=== PATIENT | female | born 1950 | race Caucasian/White ===

== ENCOUNTER 2021-08-31 07:04 | Outpatient (CLI) | payer MEDICARE, BC, SELFPAY | END 2021-08-31 07:05 | disposition home or self-care (01) | PROVIDERS: PCP Family Medicine; Visit Provider Family Medicine | DX: M54.16 Radiculopathy, lumbar region (principal); M51.36 Other intervertebral disc degeneration, lumbar region | CPT/HCPCS: 64483; J1100; Q9966 ==

== ENCOUNTER 2022-03-14 07:19 | Outpatient (CLI) | payer MEDICARE, BC, SELFPAY ==
--- NOTE | 2022-03-14 09:07 | W.ANESCHARGE ---
Anesthesia Charges Start Date/Time Anesthesia Start Date: 03/14/22 Anesthesia Start Time: 08:15 Stop Date/Time Anesthesia Stop Date: 03/14/22 Anesthesia Stop Time: 09:00 Summary Emergency: No Extremes of Age: Over 70-CPT 29573
--- NOTE | 2022-03-14 09:14 | W.ANESCHARGE ---
Anesthesia Charges Start Date/Time Anesthesia Start Date: 03/14/22 Anesthesia Start Time: 08:15 Stop Date/Time Anesthesia Stop Date: 03/14/22 Anesthesia Stop Time: 09:00 Summary Emergency: No Extremes of Age: Over 70-CPT 31099
--- NOTE | 2022-03-14 09:21 | W.ANESCHARGE ---
Anesthesia Charges Start Date/Time Anesthesia Start Date: 03/14/22 Anesthesia Start Time: 08:15 Stop Date/Time Anesthesia Stop Date: 03/14/22 Anesthesia Stop Time: 09:00 Summary Emergency: No Extremes of Age: Over 68-CPT 88758
== END 2022-03-14 07:20 | disposition home or self-care (01) ==
LOC: OP CLINIC 07:21
PROVIDERS: PCP Family Medicine; Visit Provider Internal Medicine Gastroenterology
DX: D50.9 Iron deficiency anemia, unspecified (principal); K57.30 Diverticulosis of large intestine without perforation or abscess without bleeding; Z86.010 Personal history of colon polyps; K22.89 Other specified disease of esophagus; K44.9 Diaphragmatic hernia without obstruction or gangrene; K31.7 Polyp of stomach and duodenum; R19.7 Diarrhea, unspecified
CPT/HCPCS: 00811; 00813; 43239; 45380; 88305; 99100; J2704; J3490

== ENCOUNTER 2024-07-02 22:12 | Emergency (ER) | payer MEDICARE, BC, SELFPAY ==
--- OUTSIDE RECORDS SUMMARY | 2024-07-02 22:14 | XMS_ITS | Clinical Summary ---
Author Organization [facility] Address [address] [place] [address] Care Team Providers Care Audiovisual Aids Technician Name Role Phone Hillary Webb MD Primary Care Provider Allergies No known active allergies Medications calcium carbonate (CALTRATE) 600 mg calcium (1,500 mg) tabletIndications :Osteopenia, unspecified location Take 1 Tablet (600 mg) by mouth two times daily with meals. 180 Tablet 3 11/05/19 22 Active fluticasone (50 mcg per actuation) nasal solution (FLONASE) Inhale 1 [place] into affected nostril(s) once daily if needed for Rhinitis. Active loperamide (IMODIUM) 2 mg capsule Take 2 mg by mouth each time if needed for Diarrhea. Take 2 capsules (4mg) orally with 1st loose stool, then 1 capsule (2mg) with other loose stools. Max 16 mg in 24 hrs. Active acetaminophen (TYLENOL EXTRA STRGTH) 500 mg tablet Take 2 Tablets (1,000 mg) by mouth every 6 hours if needed for Pain (For mild pain 1st choice. May take either Tylenol tablet or liquid, if both ordered.). Max acetaminophen dose: 4000mg in 24 hrs. 0 05/14/19 23 Active alendronate (FOSAMAX) 70 mg tabletIndications :Osteopenia, unspecified location TAKE 1 TABLET ONCE WEEKLY IN THE MORNING . TAKE ON EMPTY STOMACH WITH FULL GLASS OF WATER. DO NOT LIE DOWN OR EAT FOR AT LEAST 30 MINUTES AFTER ADMINISTRATION. 13 Tablet 3 11/23/19 24 Active allopurinoL (ZYLOPRIM) 100 mg tabletIndications :Gout, unspecified cause, unspecified chronicity, unspecified site,Hyperuricemi a Take 1 Tablet (100 mg) by mouth once daily. 90 Tablet 3 11/23/19 24 Active atorvastatin (LIPITOR) 20 mg tabletIndications :Hyperlipidemia, unspecified hyperlipidemia type Take 1 Tablet (20 mg) by mouth at bedtime. 100 Tablet 3 11/23/19 24 Active atenoloL (TENORMIN) 25 mg tabletIndications :Essential hypertension Take 1 Tablet (25 mg) by mouth once daily. 100 Tablet 3 11/23/19 24 Active clobetasol (TEMOVATE) 0.05 % ointmentIndicatio ns:Lichen sclerosus Apply thin later to genital area involved at bedtime once weekly 45 g 1 11/23/19 24 Active cholecalciferol, Vitamin D3, (Vitamin D-3) 5,000 unit tab tabletIndications :Hypovitaminosis D Take 1 Tablet (5,000 units) by mouth once daily. 90 Tablet 3 11/24/19 24 Active amoxicillin-clavu lanate 875-125 mg tabletIndications :Sinusitis, unspecified chronicity, unspecified location Take 1 Tablet by mouth two times daily with meals. 10 Tablet 06/21/19 25 Active amitriptyline (ELAVIL) 10 mg tabletIndications :Irritable bowel syndrome with diarrhea TAKE 1 TABLET AT BEDTIME 90 Tablet 1 12/08/19 24 025 Discontin ued(*Med complete/ Regimen complete/ Level of care change) amoxicillin-clavu lanate 875-125 mg tabletIndications :Sinusitis, unspecified chronicity, unspecified location Take 1 Tablet by mouth two times daily with meals for 5 days. 10 Tablet 06/21/19 25 025 Discontin ued(Reord er (E-cancel not sent)) Active Problems Problem Noted Date Diagnosed Date Iron deficiency anemia due to chronic blood loss 01/06/2022 Overview (03/16/2022): 10/2021 Hgb 10.6 no symptoms IV iron given 07/2017: HGB 7.0 Tranfused due to SOB EGD: 7cm hiatal hernia Final Diagnosis A) DUODENUM, BIOPSY: 1. Normal small bowel mucosa 2. Negative for celiac disease and other enteropathy B) STOMACH, BIOPSY: 1. Non-erosive reactive gastropathy (see comment) 2. Negative for chronic and atrophic gastritis, and Helicobacter organisms C) ESOPHAGUS, BIOPSY: 1. Normal esophageal squamous mucosa 2. Negative for reflux changes and eosinophilic esophagitis 3. Negative for columnar mucosa Primary osteoarthritis of right knee 06/12/2021 Overview (07/05/2021): May 2021: Dr. Stone did right knee cortisone injection. Initially 100% relief, at 3 to 4 weeks was down to 75% pain relief. Lichen sclerosus 07/18/2018 Gout 08/27/2017 Overview (08/27/2017): ON allopurinol, has hx gi bleed, use colchicine for flares Skin cancer 11/01/2016 Overview (12/22/2016): 10/29/16 RIGHT SHOULDER: BCC, nodular/infiltrative types--treated ED&C 11/17/16 DEDE Lopez Osteopenia 03/20/2014 Overview (11/04/2021): DEXA 2020 - started alendronate started Colon polyp Overview (03/16/2022): Colonoscopy 03/14/22 Normal - no follow up advised Colonoscopy 02/2017 diverticulosis , repeat in 5 years Impressions/Post-Op Diagnosis: - Diverticulosis in the sigmoid colon, in the descending colon, in the transverse colon and in the ascending colon. - The examination was otherwise normal on direct and retroflexion views. - No specimens collected. Colonoscopy 2011 in [place] - tubular adenoma x2 Hiatal hernia Overview (03/16/2022): EGD 2006 in [place] - hiatal hernia EGD 08/28/2017 Done after drop in hemoglobin form 10.6 to 7.0 in 3 months.(tranfused due to SOB) Hiatal hernia 7cm Path: Final Diagnosis A) DUODENUM, BIOPSY: 1. Normal small bowel mucosa 2. Negative for celiac disease and other enteropathy B) STOMACH, BIOPSY: 1. Non-erosive reactive gastropathy (see comment) 2. Negative for chronic and atrophic gastritis, and Helicobacter organisms C) ESOPHAGUS, BIOPSY: 1. Normal esophageal squamous mucosa 2. Negative for reflux changes and eosinophilic esophagitis 3. Negative for columnar mucosa EGD 03/14/2022: (on PPI for 4 months) Done for eval of recurrent anemia with hgb 10.6 10/2021 found incidentally Final Diagnosis A) DUODENUM, BIOPSY: 1. Normal duodenal mucosa 2. Negative for celiac disease and other enteropathy B) STOMACH, ANTRUM AND BODY, BIOPSY: 1. Normal gastric antral and body mucosae 2. Negative for Helicobacter C) STOMACH, FUNDUS, POLYPS, BIOPSY: 1. Fundic gland polyps 2. Negative for dysplasia and malignancy D) ESOPHAGUS, LOWER THIRD, BIOPSY: 1. Normal esophageal squamous mucosa 2. Negative for reflux changes and eosinophilic esophagitis 3. Negative for columnar mucosa E) COLON, RANDOM, BIOPSY: 1. Normal colonic mucosa 2. Negative for microscopic, active, and chronic colitis Gastroesophageal reflux Hyperlipidemia Hypertension Resolved Problems Problem Noted Date Diagnosed Date Resolved Date Melanoma in situ, lentigo maligna type of lip 04/23/19 20 10/28/2020 Encounters Date Type Department Care Team Description 06/20/2024 [facility]phone [facility] [address] [place] [address] Hillary Webb MD Questions (Where was her prescription sent) 06/05/2024 12:40 PM CDT [facility] [address] [place] [address] Hillary Webb MD Preoperative Exam (CATARACT (BOTH EYES BUT DIFFERENT DAYS FOR SURGERY) LEFT EYE 06/26/24, RIGHT EYE 07/03/24, [facility] EYE [facility], LORAINE VALENZUELA, ) 06/04/2024 Travel from Last 3 Months Immunizations Immunization Administration Dates Next Due COVID-19 vaccine ([employer] NTShoot Extreme 30mcg/0.3mL) MAXIM NARAYANAN 05/06/2020,04/15/2020 Influenza, High-dose Inactivated 01/25/2016,11/21 Influenza, High-dose Quadriv alent Inactivated 11/22/2022,12/06/2021,11/26/2020 Influenza, IIV3 (Age >=3 years) 01/15/20 13,01/21/2012,01/23/2009,12/21,02/01/2005 Influenza, Inactivated IIV3 (Age 65+ Years) Preserv Free 12/12/2018,12/18/2017,12/28/2016 Pneumococcal Poly,23-Valent (Pneumovax) 03/18/2013 Pneumococcal conj 13-Valent (Prevnar 13) 03/20/2014 RSV, Recombinant ADJ Reconst ituted (Arexvy 120MCG/0.5mL) 03/31/2023 Td (Age >=7 Years) 03/23/1999 Tdap 01/31/2020,03/06/2009 Zoster (Shingrix-RZV, recombinant) 03/08/2018, Family History Medical History Relation Name Comments Hypertension Mother Osteoporosis Mother Cancer-breast No Family History Cancer-ovarian No Family History Relation Name Status Comments Mother Social History Tobacco Use Types Packs/Day Years Used Date Smoking Tobacco: Former Cigarettes 0.5 10.3 0 10/21/1965 - 05/21/1976 Smokeless Tobacco: Never Tobacco Cessation:Counseling Given: Not Answered Comments:Stopped smoking 40 years ago Alcohol Use Standard Drinks/Week Comments Yes 0 (1 standard drink = 0.6 oz pur e alcohol) minimal PHQ-2 Answer Date Recorded PHQ-2 TOTAL SCORE 0 11/23/2023 Social Connections Answer Date Recorded Do you often feel lonely or isolated from those around you? 0 11/22/2023 Financial Resource Strain Answer Date R ecorded Difficulty of Paying Living Expenses 3 11/22/2023 Difficulty of Paying Living Expenses Not on file 11/22/2023 Food Insecurity Answer Date Recorded Do you worry your food will run out before you are able to buy more? 1 11/22/2023 Transportation Needs Answer Date Record ed Does lack of transportation keep you from medica l appointments? 1 11/22/2023 Does lack of transportation keep you from work, meetings or getting things that you need? 1 11/22/2023 Housing Stability Answer Date Recorded What is your housing situation today? 1 11/22/2023 Utilities Answer Date Recorded Do you have trouble paying f or utilities (for example, heat, electricity, water, phone)? 1 11/22/2023 Comments No Sex and Gender Information Value Date Recorded Sex Assigned at Not on file Legal Sex Female 2:53 PM BIODIESEL PLANT MANAGER Gender Identity Not on file Sexual Orientation Not on file Obstetrics History Para Term AB IAB SAB Ectopic Multiple Livin g Live Births 2 2 2 Date Outcome GA Total Labor Labor/2nd/3rd Weight Sex Type Anes PTL Yuko A1 A5 Name Clin Para Para Last Filed Vital Signs Vital Sign Reading Time Taken Comments Blood Pressure 146/82 06/05/2024 12:45 PM CDT Pulse 51 06/05/2024 12:45 PM CDT Temperature 36.7 C (98.1 F) 09/13/2022 2:45 PM CDT Respiratory Rate 12 09/13/2022 2:45 PM CDT Oxygen Saturation 100% 06/05/2024 12:45 PM CDT Inhaled Oxygen Concentration - - Weight 59.6 kg (131 lb 6.4 oz) 06/05/2024 12:45 PM CDT Height 164.5 cm (5' 4.76) 06/05/2024 12:45 PM C DT Body Mass Index 22.03 06/05/2024 12:45 PM CDT Plan of Treatment Health Maintenance Due Date Last Done Comments COVID-19 vaccine series ( season) 2024 12/05/2023, 08/17/2023, 11/22/2022, Additional history exists Influenza Vaccine (Season Ended) 2024 12/12/2018, 12/18/2017, 12/28/2016, Additional history exists Depression screening for age 12+ 11/22/2024 11/23/2023, 11/07/2022, 11/04/2021, Additional history exists Medicare Wellness for age 65+ 11/23/2024, 11/07/2022, 11/04/2021 (Verified in Care Everywhere or Patient Record), Additional history exists BMI (ht and wt on same day) for age 18+ 06/05/2025 06/05/2024, 11/23/2023, 11/07/2022, Additional history exists Tetanus booster 01/30/2030 01/31/2020, 02/20, 03/23/1999 Pneumococcal series for age 50+ Completed , 03/18/2013 Zoster (shingles) series for age 50+ Completed 03/08/2018, 11/16/2017 Tdap Completed 01/31/2020, 03/06/2009 Hepatitis C screening for ag e 18-79 Completed 10/28/2020 DEXA/DXA scan for age 65+ Completed 2023, 11/03/2020, 03/20/2014, Additional history exists RSV vaccine for adults or Completed 03/31/2023 Procedures Procedure Name Priority Date/Time Associated Diagnosis Comments XR DXA BONE DENSITY 1 SITE AXIAL AND 1 SITE PERIPHERAL Routine 03/27/2023 1:48 PM BIODIESEL PLANT MANAGER Osteopenia, unspecified location Postmenopausal ANTI HCV Routine 10/28/2020 9:10 AM CDT Need for hepatitis C screening test from Last 3 Months or Most Recently Relevant to Health Maintenance Results * (ABNORMAL) XR DXA BONE DENSITY 1 SITE AXIAL AND 1 SITE PERIPHERAL (03/27/2023 1:48 PM BIODIESEL PLANT MANAGER) Anatomical Region Laterality Modality LUMBAR SPINE Other Impressions 03/28/2023 2:10 PM BIODIESEL PLANT MANAGER Osteoporosis. There has been a significant decline in the radius since 2020, consider alternative treatment. RECOMMENDATIONS: The National Osteoporosis Foundation recommends pharmacologic treatment for patients with T-scores of -2.5 or less, patients with prior history of fragility fractures, or patients with 10-year probability of greater than 3% at hips or greater than 20% of suffering major osteoporotic fractures. Recommend continued optimization of calcium and vitamin D intake through dietary means and/or supplementation and regular exercise. Consider alternative medication due to decline, recheck in 2 years. Zita Butler PA-C [employer] [facility] 03/28/2023 Narrative 03/28/2023 2:10 PM BIODIESEL PLANT MANAGER For Patients: Results are automatically released to your [employer] account once available, in compliance with federal regulations. This means that you may see your results before your provider has had a chance to review them. Please allow 2-3 business days for your provider to comment on the results. XR DXA Bone Mineral Density (BMD) EXAM LOCATION: [facility] [address] [facility] [address] PATIENT NAME: Meg Doty DATE OF : 1950 EXAM DATE: 03/27/2023 REQUESTING PROVIDER: Hillary Webb MD GENDER AT : female HEIGHT: 5' 4.33 (11/07/2022) WEIGHT: 123 lb 9.6 oz (11/07/2022) MENOPAUSAL STATUS: Postmenopausal RACE/ETHNICITY: White RISK FACTORS: Smoking (prior) and White Race CURRENT MEDICATION FOR BONE LOSS: Alendronate (Fosamax) INDICATION: Follow-up of existing osteopenia, Follow-up of pharmacologic treatment, and Post-Menopause COMPARISON DATE(S): 2020 DXA scans are compared to prior studies for a patient only when the two (or more) studies were performed on the same scanner. It is not possible to compare data generated on one scanner to data from another because there are not standards in DXA equipment. This applies even if the two scanners are made by the same tray packer. PROCEDURE: Dual-energy x-ray absorptiometry performed with routine technique. Reporting is completed in the form of a T-score. The T-score represents the standard deviation from peak bone mass based on young healthy adult. A Z-score is used for diagnosis in premenopausal women, and for men under the age of 50. FINDINGS: RESULTS FEMUR Left femoral neck BMD: 0.920 g/cm2 T-Score: - 0.9 Z-Score: + 1.3 Change from prior in 2020: Increase 4.3%. Right femoral neck BMD: 0.778 g/cm2 T-Score: - 1.9 Z-Score: + 0.3 Change from prior in 2020: Increase 5.6%. Left hip BMD: 0.889 g/cm2 T-Score: - 0.9 Z-Score: + 1.0 Change from prior in 2020: Increase 2.3%. Right hip BMD: 0.787 g/cm2 T-Score: - 1.8 Z-Score: + 0.2 Change from prior in 2020: Increase 1.7%. RESULT FOREARM Left Forearm distal radius BMD: 0.490 g/cm2 T-Score: - 3.0 Z-Score: - 0.8 Change from prior in 2020: Decrease 9.3%. WHO criteria: Normal: T-score at or above -1 SD Osteopenia: T-score between -1.1 and -2.4 SD Osteoporosis: T-score at or below -2.5 SD us Hillary Webb MD DEXA Final Resul t * ANTI HCV (10/28/2020 9:10 AM CDT) HEPATITIS C ANTIBODY Non-React yvon Non-React yvon 10/28/2020 4:52 PM CDT [facility] Comment:Antibodies to HCV no t detected; does not exclude the possibility of exposure to HCV. Blood BLOOD SPECIMEN / Unknown Venipuncture / Unknown 10/28/2020 9:10 AM CDT 10/28/2020 9:10 AM CDT us Gaby Brar MD SEND OUTS Final Result [facility] [address] [place] [address], [place] from Last 3 Months or Most Recently Relevant to Health Maintenance Insurance [employer] [address] [employer] HB ONLY MEDICARE PART B HB ONLY MEDICARE PART A HB ONLY Advance Directives Documents on File Type Date Recorded Patient Workforce Planner Expl anation Healthcare Directive 05/03/2016 017 * Full Code (Latest Code Status on File) Date Activated Date Inactivated Comments 05/13/2022 8:36 AM 05/13/2022 1:30 PM Question Answer Comments Code Status Discussion: Reviewed Preferences * Full Code Date Activated Date Inactivated Comments 05/12/2022 10:57 AM 05/13/2022 8:36 AM Question Answer Comments Code Status Discussion: Unable to Assess Preferences, Provider to review later * Full Code Date Activated Date Inactivated Comments 04/23/2019 6:08 AM 04/23/2019 1:43 PM * Full Code Date Activated Date Inactivated Comments 04/23/2019 6:08 AM 04/23/2019 6:08 AM Care Teams Audiovisual Aids Technician Relationship Specialty Start Date End Date Hillary Webb MD [address] [place] [address] PCP - General Family Practice 08/24/22
--- OUTSIDE RECORDS SUMMARY | 2024-07-02 22:14 | XMS_ITS ---
Author Name Interface, [id number] [facility]ity Address [address] [facility] [address] [address] Organization [facility] Address [address] [facility] [address] [place] [address] Care Team Providers Care Paraffin Plant Sweater Operator Name Role Phone Richard Jordan Unavailable Unavailab le Allergies and Adverse Reactions Medication/Group Name Reaction Severity Date No known allergies Plan Date Type Value 11/02/2020 APPOINTMENT RC - 3 MOS - 3 M OS 08/06/2020 APPOINTMENT RC - 3 MOS - 3 M OS Reason for Visit RC - 3 MOS - 3 MOS Encounters Date Name 08/06/2020 Hypertrophic scar 08/06/2020 Melanoma in situ Immunizations Date Name Route Dose Instructions Refusal Reason Stat us Covid-19 vaccine (Moderna) Covid-19 vaccine (Moderna) Diagnostic Results Date Type Test Units Lower Limit Upper Limit Result Flag Comments Status Ordered By Specimen Source Lab Address 10/28 [facility] other lab See d Medications Date Name Route Dose Frequency Instructions Start Date End Date Status Simvastatin Oral active Allopurinol Oral active Loperamide Oral a ctive Clobetasol Topical Cream 0.05 % active Fluticasone Nasal [place] 50 mcg/actuation active Atenolol Oral act yvon Omeprazole Oral Delayed Release Capsule active 021 triamcinolone acetonide 40 MG/ML Injectable Suspension [Kenalog] into the lesion 0.4 mg once inject into site as ten - 1 mg doses greater than or equal to 1 cm apart. 021 active 015 Cholecalciferol Oral Oral 1.0 {capsul e} Vitamin D3 015 active Problems Diagnosis Status Date of Diagnosi s Hypertrophic scar Active Melanoma in situ Active 03/05/2019 Vital Signs Date Type Value 08/06/2020 Heart Beat 70.00 08/06/2020 Oxygen Saturation 98.00 08/06/2020 Height 65.00 08/06/2020 Pain Scale 0.00 08/06/2020 Intravascular Systolic 108 08/06/2020 Intravascular Diastolic 65
--- OUTSIDE RECORDS SUMMARY | 2024-07-02 22:14 | XMS_ITS | CCD ---
Author Name Interface, [id number] lity Address [address] [place], [place] [address] [place] [address] Organization [facility] Address [address] [address] Care Team Providers Care Applications Scientist Name Role Phone Richard Jordan Unavailable Unavailab le Allergies and Adverse Reactions Reason for Visit Encounters Medications Problems Social History
--- OUTSIDE RECORDS SUMMARY | 2024-07-02 22:15 | XMS_ITS | Clinical Summary ---
Author Organization [facility] Address [address] [place] [address] Care Team Providers Care Electric Motor Control Assembler Name Role Phone Hillary Webb MD Primary Care Provider Allergies No known active allergies Social History Tobacco Use Types Packs/Day Years Used Date Smoking Tobacco: Never Assessed Adolescent Education Answer Date Record ed Getting School Help Needed Not on file 01/19 Comments Unknown Sex and Gender Information Value Date Recorded Sex Assigned at Female 02/06/2023 8:12 PM ELECTRONIC PUBLISHING SPECIALIST Legal Sex Female 8:12 PM ELECTRONIC PUBLISHING SPECIALIST Gender Identity Female 02/06/2023 8:12 PM ELECTRONIC PUBLISHING SPECIALIST Sexual Orientation Bisexual 02/06/2023 8: 12 PM ELECTRONIC PUBLISHING SPECIALIST Plan of Treatment Health Maintenance Due Date Last Done Comments ADVANCE CARE PLANNING 1950 ANNUAL REVIEW OF HM ORDERS 1950 DEXA 1950 DIABETES SCREENING 1950 HEPATITIS C SCREENING 01/01/1966 LIPID 1988 FALL RISK ASSESSMENT 01/01/2013 RSV VACCINE (1 - 1-dose 75+ series) 01/01/2023 COVID-19 Vaccine ( season) 2023 11/22/2022, 07/25/2022, 12/06/2021, Additional history exists MEDICARE ANNUAL WELLNESS VISIT 11/08/2023 11/07/2022, 10/28/2020 PHQ-2 (once per calendar year) 2024 INFLUENZA VACCINE (Season Ended) 2024 11/22/2022, 12/06/2021, 11/26/2020, Additional history exists DTAP/TDAP/TD IMMUNIZATION (3 - Td or Tdap) 01/30/2030 01/31/2020, 03/06/2009, 03/23/1999 Pneumococcal Vaccine: 50+ Years Completed 03/20/2014, 03/18/2013 ZOSTER IMMUNIZATION Completed 03/08/2018, 8 MAMMO SCREENING Discontinued 04/22/2022, 03/24, 03/10/2020 HPV IMMUNIZATION Aged Out No longer e ligible based on patient's age to complete this topic MENINGITIS IMMUNIZATION Aged Out No l onger eligible based on patient's age to complete this topic Insurance MEDICARE [facility] Address: [address] [address] [place] [address] MEDICARE BC [employer] [employer] Care Teams Electric Motor Control Assembler Relationship Specialty Start Date End Date Hillary Webb MD [address] [place] [address] PCP - General Family Medicine 02/09/23
[2024-07-02 22:20] VITALS: BP 128/70; PULSE 94; RESP 18; TEMP 38.8; O2SAT 97; BMI 21.8
--- NOTE | 2024-07-02 23:01 | CRLHL7_ITS ---
For Patients: As a result of the Cures Act, medical imaging exams and procedure reports are released immediately into your electronic medical record. You may view this report before your referring provider. If you have questions, please contact your health care provider. Indication: Sinus symptoms, fever, recent antibiotics Technique: CT of the sinuses with multiplanar reformats without contrast Comparison: None Findings: Maxillary sinuses: Trace mucosal thickening. No air-fluid levels. Ostiomeatal units are patent. Ethmoid sinuses: No significant mucosal thickening. Frontal sinuses: No significant mucosal thickening. Frontal recesses appear patent. Sphenoid sinuses: Trace mucosal thickening. No air-fluid levels. Sphenoethmoidal recesses appear patent. Nasal cavity: No mass lesion. No kaitlyn bullosa. Slight S shaped nasal septum. Tiny left nasal septal spur. Other: No appreciated maxillofacial fracture. Orbits are unremarkable. Mastoid air cells are unremarkable. Soft tissues are unremarkable. Impression: Minimal sinus mucosal thickening with no findings to suggest acute sinusitis. Please note that all CT scans at this facility use dose modulation, iterative reconstruction, and/or weight-based dosing when appropriate to reduce radiation dose to as low as reasonably achievable. Dictated by Michael Bello MD @ 07/02/2024 11:56:35 PM (Electronically Signed)
--- OUTSIDE RECORDS SUMMARY | 2024-07-02 23:05 | XMS_ITS | Clinical Summary ---
Author Organization [facility] Address [address] [place] [address] Care Team Providers Care X Ray Equipment Tester Name Role Phone Hillary Webb MD Primary Care Provider Allergies No known active allergies Social History Tobacco Use Types Packs/Day Years Used Date Smoking Tobacco: Never Assessed Adolescent Education Answer Date Record ed Getting School Help Needed Not on file 01/19 Comments Unknown Sex and Gender Information Value Date Recorded Sex Assigned at Female 02/06/2023 8:12 PM ACCOUNT EXECUTIVE AGRIBUSINESS Legal Sex Female 8:12 PM ACCOUNT EXECUTIVE AGRIBUSINESS Gender Identity Female 02/06/2023 8:12 PM ACCOUNT EXECUTIVE AGRIBUSINESS Sexual Orientation Bisexual 02/06/2023 8: 12 PM ACCOUNT EXECUTIVE AGRIBUSINESS Plan of Treatment Health Maintenance Due Date [...] age to complete this topic Insurance MEDICARE [facility] MEDICARE [place] Care Teams X Ray Equipment Tester Relationship Specialty Start Date End Date Hillary Webb MD [address] [place] [address] PCP - General Family Medicine 02/09/23
--- OUTSIDE RECORDS SUMMARY | 2024-07-02 23:05 | XMS_ITS | CCD ---
Author Name Interface, [id number] lity Address [address] [place], [place] [address] [place] [address] Organization [facility] Address [address] [address] Care Team Providers Care Weaver Hand Loom Name Role Phone Richard Jordan Unavailable Unavailab le Allergies and Adverse Reactions Reason for Visit Encounters Medications Problems Social History
--- OUTSIDE RECORDS SUMMARY | 2024-07-02 23:05 | XMS_ITS | CCD ---
Author Name Interface, [id number] lity Address [address] [place], [place] [address] [place] [address] Organization [facility] Address [address] [address] Care Team Providers Care Cold Patcher Name Role Phone Richard Jordan Unavailable Unavailab le Allergies and Adverse Reactions Reason for Visit Encounters Medications Problems Social History
--- OUTSIDE RECORDS SUMMARY | 2024-07-02 23:05 | XMS_ITS | Clinical Summary ---
Author Organization [employer] [facility] Address [address] [place] [address] Care Team Providers Care Supervisor Poultry Hatchery Name Role Phone Hillary Webb MD Primary Care Provider Allergies No known active allergies Medications calcium carbonate (CALTRATE) 600 mg calcium (1,500 mg) tabletIndications :Osteopenia, unspecified location Take 1 Tablet (600 mg) by mouth two times daily with meals. 180 Tablet 3 11/05/19 22 Active fluticasone (50 mcg per actuation) nasal solution (FLONASE) Inhale 1 [place] into affected nostril(s) once daily if needed [...] - No specimens collected. Colonoscopy 2011 in [place] - tubular adenoma x2 Hiatal hernia Overview (03/16/2022): EGD 2006 in [place] - hiatal hernia EGD 08/28/2017 Done after [...] Type Department Care Team Description 06/20/2024 Telephone [address] [place] [address] Hillary Webb MD Questions (Where was her prescription sent) 06/05/2024 12:40 PM CDT Office Visit [address] [place] [address] Hillary Webb MD Preoperative Exam (CATARACT (BOTH EYES BUT DIFFERENT DAYS FOR SURGERY) LEFT EYE 06/26/24, RIGHT EYE 07/03/24, [facility], LORAINE VALENZUELA, ) 06/04/2024 Travel from Last 3 Months Immunizations Immunization Administration Dates Next Due COVID-19 vaccine ([employer] NTFashiontrot 30mcg/0.3mL) MAXIM NARAYANAN 05/06/2020,04/15/2020 Influenza, High-dose Inactivated [...] on file Legal Sex Female 2:53 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 There has been a significant decline [...] recheck in 2 years. Zita Butler PA-C [employer] [facility] 03/28/2023 Narrative 03/28/2023 2:10 PM FUR DESIGNER For Patients: Results are automatically released to your [employer] ([employer]) account once available, in compliance with federal regulations. This means that you may see your results before your provider has had a chance to review them. Please allow 2-3 business days for your provider to comment on the results. XR DXA Bone Mineral Density (BMD) EXAM LOCATION: [facility] [address] [facility] [address] PATIENT NAME: Meg Doty DATE OF : [...] two scanners are made by the same multimedia artist. PROCEDURE: Dual-energy x-ray absorptiometry performed with routine [...] yvon Non-React yvon 10/28/2020 4:52 PM CDT [facility] Comment:Antibodies to HCV no t detected; does not exclude the possibility of exposure to HCV. Blood BLOOD SPECIMEN / Unknown Venipuncture / Unknown 10/28/2020 9:10 AM CDT 10/28/2020 9:10 AM CDT us Gaby Brar MD SEND OUTS Final Result [facility] 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
--- OUTSIDE RECORDS SUMMARY | 2024-07-02 23:05 | XMS_ITS ---
Author Name Interface, [id number] lity Address [address] [facility] [address] [address] Organization [facility] Address [address] [facility] [address] [place] [address] Care Team Providers Care Wedding Planning Internship Name Role Phone Richard Jordan Unavailable Unavailab [...] Ordered By Specimen Source Lab Address 10/28 [facility] [place] other lab See d Medications Date Name Route Dose Frequency Instructions Start Date End Date Status Simvastatin Oral active Allopurinol Oral active Loperamide Oral a ctive Clobetasol Topical Cream 0.05 % active Fluticasone Nasal [place] 50 mcg/actuation active Atenolol Oral act yvon [...]
--- OUTSIDE RECORDS SUMMARY | 2024-07-02 23:05 | XMS_ITS ---
Author Name Interface, [id number] lity Address [address] [facility] [address] [address] Organization [facility] Address [address] [facility] [address] [place] [address] Care Team Providers Care Food Chemist Name Role Phone Richard Jordan Unavailable Unavailab [...] Ordered By Specimen Source Lab Address 10/28 [facility] [place] other lab See d Medications Date Name Route Dose Frequency Instructions Start Date End Date Status Simvastatin Oral active Allopurinol Oral active Loperamide Oral a ctive Clobetasol Topical Cream 0.05 % active Fluticasone Nasal [place] 50 mcg/actuation active Atenolol Oral act yvon [...]
[2024-07-02 23:15] LABS: PCR FLU A Negative PCR FLU A (Negative); PCR FLU B Negative PCR FLU B (Negative); PCR RSV Negative PCR RSV (Negative); SARS PCR* Negative SARS-CoV-2 (Negative)
[2024-07-02] MEDS: ACETAMINOPHEN 500 MG TABLET 1000 MG PO (23:16)
[2024-07-02] MEDS: ONDANSETRON 2 MG/ML inj 4 MG IVP (23:16)
[2024-07-02] MEDS: 0.9 % SODIUM CHLORIDE 1000 ml 1,000 ML IV (23:16)
[2024-07-02 23:26] LABS: Lactate Sepsis w/Reflex* 1.8 mmol/L (0.5-1.9)
[2024-07-02 23:28] LABS: Appearance Urine Clear (Clear); Bilirubin Urine Negative (Negative); Blood Urine 1+ (Negative); Color Urine Yellow (Yellow); Glucose Urine Negative (Negative); Ketones Urine 2+ (Negative); Leukocyte Esterase Urine Trace (Negative); Nitrite Urine Negative (Negative); Protein Urine Negative (Negative); Urobilinogen Urine 0.2 (0.2-1.0); pH Urine 5.5 (5.0-8.5)
[2024-07-02 23:29] LABS: Basophils Percent Auto 0.1 % (0.0-3.0); Eosinophils Percent Auto 0.1 % (0.0-7.0); Hematocrit 38.6 % (33.0-51.0); Hemoglobin* 12.7 gm/dL (12.0-16.0); Immature Granulocytes Pct Auto 1.1 %; Mean Corpuscular HGB Conc 33 gm/dL (32-36); Mean Corpuscular Hemoglobin 30 pg (26-34); Mean Corpuscular Volume 91 fL (80-100); Monocytes Percent Auto 6.8 % (0.0-11.0); Neutrophils Percent Auto 86.9 % (42.0-72.0); Platelet Count* 201 K/uL (140-440); RDW Coefficient of Variation % 13.3 % (11.5-15.5); Red Blood Count 4.23 m/uL (4.00-5.20); White Blood Count* 15.99 K/uL (4.50-11.00)
[2024-07-02 23:31] LABS: Slide Review Reflex No
[2024-07-02 23:54] LABS: Albumin* 4.3 g/dL (3.3-5.0); Chloride* 104 mmol/L (96-114)
[2024-07-02 23:55] LABS: Bacteria Urine Few; Potassium* 3.9 mmol/L (3.6-5.1); RBC Urine 0-2 (0-2); Sodium* 137 mmol/L (135-149); Squamous Epithelial Cell Urine Few (None-Few); WBC Urine 0-2 (0-5)
[2024-07-02 23:57] LABS: Alanine Aminotransferase* 56 U/L (4-35); Alkaline Phosphatase* 52 U/L (40-150); Anion Gap 11 mEq/L (7-15); Aspartate Amino Transferase* 51 U/L (12-35); Bilirubin Direct* 0.3 mg/dL (0.0-0.5); Bilirubin Total* 1.3 mg/dL (0.1-1.5); Blood Urea Nitrogen* 12 mg/dL (7-30); Carbon Dioxide* 22 mmol/L (20-32); Creatinine* 0.8 mg/dL (0.5-1.5); Est. Creatinine Clearance* 43.07; Estimated Glomerular Filt Rate 76 ml/min; Lipase* 14 U/L (23-300); Total Protein* 6.8 g/dL (6.0-8.3)
[2024-07-02 23:58] LABS: Glucose* 150 mg/dL (60-115)
[2024-07-03] LABS: C Reactive Protein* 6.7 mg/dL (0.5-1.0)
--- NOTE | 2024-07-03 00:40 | ED_ITS ---
HPI - General Adult General Date Seen: 07/03/24 Chief complaint: Headache/Migraine Stated complaint: Sinus headache, nausea Time Seen by Provider: 07/02/24 22:44 History of Present Illness HPI narrative: Patient is a 74-year-old woman here with her for evaluation of fever. She notes that she started to feel poorly a day or 2 ago with fatigue, body aches, chills, and fevers. She says that she has been having sinus headaches for about 5 weeks, and finally was prescribed antibiotics on June 23, she says antibiotics tend to upset her stomach and so she was given just a 5 day course. She reports that that isn't really help her sinus headache. She has since then developed nausea and some retching, she status post Martinez fundoplication and so she says she is not able to vomit. She has had 5 or 6 episodes a day of nonbloody diarrhea. She does not have any abdominal pain however. She specifically denies any respiratory symptoms such as cough or shortness of breath, no chest pain, no urinary symptoms. Right now she says the nausea is most prominent feature. She does not smoke or drink, general health is good. She is status post cholecystectomy. Related Data Home Medications ?Medication ?Instructions ?Recorded ?Confirmed alendronate 70 mg tablet 70 mg PO .once weekly 08/02/22 07/02/24 allopurinol 100 mg tablet 100 mg PO DAILY 08/02/22 07/02/24 atenolol 50 mg tablet 25 mg PO DAILY 08/02/22 07/02/24 atorvastatin 20 mg tablet 20 mg PO DAILY 08/02/22 07/02/24 calcium 600 mg (as 1 cap PO BID 08/02/22 07/02/24 carbonate)-vitamin D3 12.5 mcg (500 unit) capsule (Calcium with Vit D3) Previous Rx's ?Medication ?Instructions ?Recorded clobetasol 0.05 % topical ointment 1 applic topical DIRECTED #30 08/02/22 grams Allergies Allergy/AdvReac Type Severity Reaction Status Date / Time No Known Drug Allergies Allergy Verified 07/02/24 22:29 Review of Systems Status of ROS: Reports: 10 or more systems reviewed and unremarkable except as noted in History and below [facility] Medical History History of gout ?Z87.39 - Personal history of other diseases of the musculoskeletal system and connective tissue (ICD-10) History of skin cancer ?Z85.828 - Personal history of other malignant neoplasm of skin (ICD-10) History of colon polyps ?Z86.010 - Personal history of colonic polyps (ICD-10) Surgical History Hx of cholecystectomy ?Z90.49 - Acquired absence of other specified parts of digestive tract (ICD- 10) History of Martinez fundoplication ?Z98.890 - Other specified postprocedural states (ICD-10) History of esophageal dilatation ?Z98.890 - Other specified postprocedural states (ICD-10) History of colonoscopy ?Z98.890 - Other specified postprocedural states (ICD-10) History of tonsillectomy ?Z90.89 - Acquired absence of other organs (ICD-10) History of lumbar laminectomy ?Z98.890 - Other specified postprocedural states (ICD-10) Family History Mother High blood pressure Osteoporosis Father Prostate cancer Social History Smoking Status: Former smoker Exam Narrative: Exam Narrative: Vital signs reviewed In general, alert, nontoxic elderly woman. She looks comfortable, breathing easily. Head: Normocephalic, atraumatic. Eyes: Sclera clear. Pupils equal and reactive. ENT: Mucous membranes moist. Throat normal. Neck: Supple without adenopathy. No meningeal signs. Heart: Regular rate and rhythm without murmur. Lungs: Clear. No increased work of breathing, crackles or wheezes. Abdomen: Soft, nontender to palpation. No rebound guarding or rigidity. Extremities: Well perfused, pulses intact. No significant edema. Neurologic: Alert, conversant. Speech fluent, face symmetric. Moves all extremities equally. Skin: Warm, dry well perfused. No rashes. Affect: Normal. Const: Vital Signs, click to edit/add: Vital Signs - 24 hr 07/02/24 22:20 Temperature 101.9 F H Pulse Rate [Left P ulse Oximeter] 94 Respiratory Rate 18 Blood Pressure [Ri ght Upper Arm] 128/70 Pulse Oximetry 97 Oxygen Delivery Me thod Room Air Course Course ED Course: Patient had Tylenol here, an IV was established and she was given a L of normal saline as well as some Zofran. I did elect to do a CT of the sinuses given that she feels she has had these sinus symptoms for a month which did not respond to Augmentin. However when I look at her sinuses they look clear to me, radiology reads these as likewise clear without evidence of significant sinus disease. Her labs show white blood cell count of 16 with 87% neutrophils. Hemoglobin is normal. Metabolic panel is unremarkable, lactate is 1.8. LFTs show mild elevations of transaminases with an AST of 51 ALT of 56 but are otherwise normal. CRP mildly elevated at 6.7 lipase normal. Urinalysis is notable for ketones but no red cells or white cells. Viral swab is negative. On reassessment she says she is feeling quite a bit better. We discussed her labs, discussed that symptoms are somewhat nonspecific and could be viral, certainly she does not have any focal symptoms that would direct me to a specif ic bacterial source, but did discuss that her labs could potentially point to more of a bacterial cause. Discussed options of observation for couple more days verses additional imaging of chest abdomen pelvis. At this time, she would rather observe. Reviewed reasons to return such as development of new or worsening symptoms, cough, shortness of breath, chest pain, abdominal pain, uncontrolled nausea or bloody stools. Primary care follow-up if not improved over the next few days. I prescribed Zofran if needed for home use. Tylenol for fever as needed. Vital Signs Vital signs: Initial Vital Signs Temperature 101.9 F H 07/02/24 22:20 Temperature Source Temporal Artery Scan 07/02/24 22:20 Pulse Rate 94 07/02/24 22:20 Respiratory Rate 18 07/02/24 22:20 Blood Pressure 128/70 07/02/24 22:20 Blood Pressure Mean 89 07/02/24 22:20 Blood Pressure Position Sitting 07/02/24 22:20 Pulse Oximetry 97 07/02/24 22:20 Oxygen Delivery Method Room Air 07/02/24 22:20 Vital Signs Temperature 101.9 F H 07/02/24 22:20 Pulse Rate 94 07/02/24 22:20 Respiratory Rate 18 07/02/24 22:20 Blood Pressure 128/70 07/02/24 22:20 Pulse Oximetry 97 07/02/24 22:20 Oxygen Delivery Method Room Air 07/02/24 22:20 Temperature 101.9 F H 07/02/24 22:20 Pulse Rate 94 07/02/24 22:20 Respiratory Rate 18 07/02/24 22:20 Blood Pressure 128/70 07/02/24 22:20 Pulse Oximetry 97 07/02/24 22:20 Oxygen Delivery Method Room Air 07/02/24 22:20 Medications Administered Medications: Discontinued Medications Generic Name Dose Route Start Last Admin Trade Name Leonidq PRN Reason Stop Dose Admin Acetaminophen 1,000 mg 07/02/24 23:01 07/02/24 23:16 Acetaminophen 500 Mg Tablet PO 07/02/24 23:02 1,000 mg ONCE ONE Administration Sodium Chloride 1,000 mls @ 1,000 mls/hr 07/02/24 23:15 07/03/24 00:39 0.9 % Sodium Chloride 1000 Ml IV 07/03/24 00:14 Infused .Q1H SHAWNA Infusion Ondansetron HCl 4 mg 07/02/24 23:01 07/02/24 23:16 Ondansetron 2 Mg/Ml Inj IVP 07/02/24 23:02 4 mg ONCE ONE Administration Medical Decision Making Lab Data Labs: Lab Results 07/02/24 07/02/24 Range/Units 22:33 23:20 WBC 15.99 H (4.50-11.00) K/uL RBC 4.23 (4.00-5.20) m/uL Hgb 12.7 (12.0-16.0) gm/dL Hct 38.6 (33.0-51.0) % MCV 91 (80-100) fL MCH 30 (26-34) pg MCHC 33 (32-36) gm/dL RDW Coeff of Malena 13.3 (11.5-15.5) % Plt Count 201 (140-440) K/uL Neut % (Auto) 86.9 H (42.0-72.0) % Lymph % (Auto) 5.0 L (20-44) % [place] % (Auto) 6.8 (0.0-11.0) % Eos % (Auto) 0.1 (0.0-7.0) % Baso % (Auto) 0.1 (0.0-3.0) % Neut # (Auto) 13.90 H (1.7-7.0) K/uL Lymph # (Auto) 0.80 L (0.90-2.90) K/uL [place] # (Auto) 1.10 H (0.00-0.90) K/UL Eos # (Auto) 0.00 (0.00-0.50) K/uL Baso # (Auto) 0.00 (0.00-0.30) K/uL Abs Immat Gran (auto) 0.20 (0.00-0.30) K/uL Imm/Tot Granulo (auto) 1.1 % Sodium 137 (135-149) mmol/L Potassium 3.9 (3.6-5.1) mmol/L Chloride 104 (96-114) mmol/L Carbon Dioxide 22 (20-32) mmol/L Anion Gap 11 (7-15) mEq/L BUN 12 (7-30) mg/dL Creatinine 0.8 (0.5-1.5) mg/dL Estimated Creat Clear 43.07 Estimated GFR 76 ml/min Glucose 150 H (60-115) mg/dL Lactate 1.8 (0.5-1.9) mmol/L Calcium 9.0 (8.4-10.6) mg/dL Total Bilirubin 1.3 (0.1-1.5) mg/dL Direct Bilirubin 0.3 (0.0-0.5) mg/dL AST 51 H (12-35) U/L ALT 56 H (4-35) U/L Alkaline Phosphatase 52 (40-150) U/L C-Reactive Protein 6.7 H (0.5-1.0) mg/dL Total Protein 6.8 (6.0-8.3) g/dL Albumin 4.3 (3.3-5.0) g/dL Lipase 14 L (23-300) U/L Urine Color Yellow (Yellow) Urine Appearance Clear (Clear) Urine pH 5.5 (5.0-8.5) Ur Specific [place] 1.020 (1.000-1.030) Urine Protein Negative (Negative) Urine Glucose (UA) Negative (Negative) Urine Ketones 2+ A (Negative) Urine Blood 1+ A (Negative) Urine Nitrite Negative (Negative) Urine Bilirubin Negative (Negative) Urine Urobilinogen 0.2 (0.2-1.0) Ur Leukocyte Esterase Trace A (Negative) Urine RBC 0-2 (0-2) Urine WBC 0-2 (0-5) Ur Squamous Epith Cells Few (None-Few) Urine Bacteria Few A (None) SARS-CoV-2 (PCR) Negative SARS-CoV-2 (Negative) Influenza Type A (PCR) Negative PCR FLU A (Negative) Influenza Type B (PCR) Negative PCR FLU B (Negative) RSV (PCR) Negative PCR RSV (Negative) Discharge Plan Discharge Clinical Impression: Fever Patient Disposition: Home, Self-Care Condition: Improved Instructions: Fever in Adults (ED) Additional Instructions: Tylenol as needed for fever. Maintain hydration. Overall, your workup tonight does not reveal a specific cause for your symptoms. They may be viral, but if you are feeling worse or develops focal abdominal pain, bloody stools, unusual rashes, significant cough, shortness of breath or other new symptoms, return to the emergency department at any time. If you are not feeling improved in a few days, please follow-up with your primary doctor. Prescriptions: No Action atenolol 50 mg tablet 25 mg PO DAILY calcium carbonate-vitamin D3 [Calcium 600 with Vitamin D3] 600 mg-12.5 mcg (500 unit) capsule 1 cap PO BID allopurinol 100 mg tablet 100 mg PO DAILY alendronate 70 mg tablet 70 mg PO .once weekly atorvastatin 20 mg tablet 20 mg PO DAILY clobetasol 0.05 % ointment 1 applic topical DIRECTED Qty: 30 1RF Follow Up/Referrals: Provider,Not a Local [Primary Care Provider] - Stand Alone Forms: MyHealth Info Instructions
[2024-07-03 00:44] VITALS: BP 119/63; PULSE 81; RESP 16; TEMP 38.1; O2SAT 96
== END 2024-07-03 00:48 | disposition home or self-care (01) ==
PROVIDERS: Emergency Provider Emergency Medicine
DX: R50.9 Fever, unspecified (principal); R53.83 Other fatigue; R51.9 Headache, unspecified; R11.0 Nausea; R19.7 Diarrhea, unspecified
CPT/HCPCS: 36415; 70486; 80048; 80076; 81001; 83605; 83690; 85025; 86140; 87086; 87631; 96361; 96374; 99284; A9270; J2405; J7030

== ENCOUNTER 2024-08-23 08:48 | Emergency (ER) | payer MEDICARE, BC, SELFPAY ==
--- OUTSIDE RECORDS SUMMARY | 2024-08-13 08:45 | XMS_ITS | Encounter Summary ---
Author Organization [facility] Address [address] [place] [address] Care Team Providers Care School Counsellor Name Role Phone Unavailable Primary Care Provider Unavailabl e Reason for Visit * Reason Onset Date Comments Previsit Preparation 08/13/2024 ELVIS DONE 08/12 Encounter Details Date Type Department Care Team (Latest Contact Info) Description 08/13/2024 8:45 AM CDT Clinical Communication Virtual Review in [place], [place] [address] [place] [address] Previsit Preparation (ELVIS DONE 08/12/) Social History Tobacco Use Types Packs/Day Years Used Date Smoking Tobacco: Former Cigarettes 0.3 12.8 0 03/27/1966 - 01/01/1979 Smokeless Tobacco: Never Tobacco Cessation:Counseling Given: Not Answered Comments:Stopped smoking 45 years ago Alcohol Use Standard Drinks/Week Comments Yes 1 (1 standard drink = 0.6 oz pur e alcohol) [facility] Utilities Answer Date Recorded In the past 12 months has [employer], [employer], oil, or water [employer] threatened to shut off services in your home? No 08/10/2024 Hunger Vital Sign Answer Date Recorded Within the past 12 months, y ou worried that your food would run out before you got the money to buy more. Never true 08/11/19 25 Within the past 12 months, t he food you bought just didn't last and you didn't have money to get more. Never true 08/10/2024 PRAPARE - Transportation Answer Date Re corded In the past 12 months, has l ack of transportation kept you from medical appointments or from getting medications? No 07/22 In the past 12 months, has l ack of transportation kept you from meetings, work, or from getting things needed for daily living? No 08/10/2024 Housing Stability Answer Date Recorded What is your living situation today? 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
--- OUTSIDE RECORDS SUMMARY | 2024-08-13 13:10 | XMS_ITS | Encounter Summary ---
Author Organization [facility] Address [address] [place] [address] Care Team Providers Care Vegetable Worker Name Role Phone Unavailable Primary Care Provider Unavailabl e Reason for Visit * Appointment Request (Routine) - Closed Specialty Diagnoses / Procedures Referred By Contact Referred To Contact Gastroenterology and Hepatology Diagnoses Clostridium Difficile Infection Referral ID Status Reason Start Date Expiration Date Visits Re quested Visits Authorized [id number] Closed 07/29/2024 10/29/2025 1 1 Encounter Details Date Type Department Care Team (Latest Contact Info) Description 08/13/2024 1:10 PM CDT Comprehensive Visit Division of Gastroenterology in [place], [place] [address] [place] [phone] Juan Jose Simmons M.B.BMarcusS., M.S. 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 Gender Identity Female 08/10/2024 10:39 AM CDT Sexual Orientation Straight 08/10/2024 10 :39 AM CDT documented as of this encounter Last Filed Vital Signs Vital Sign Reading Time Taken Comments Blood Pressure 173/71 08/13/2024 12:55 PM CDT Pulse 61 08/13/2024 12:55 PM CDT Temperature - - Respiratory Rate - - Oxygen Saturation - - Inhaled Oxygen Concentration - - Weight 54.2 kg (119 lb 6.1 oz) 08/13/2024 12:55 PM CDT Height 162.3 cm (5' 3.9) 08/13/2024 12:55 PM CD T Body Mass Index 20.56 08/13/2024 12:55 PM CDT documented in this encounter Patient Instructions * Patient Instructions* Juan Jose Simmons M.B.B.S., M.S. - 08/13/2024 1:10 PM CDT RECOMMENDATIONS: In general, before considering antibiotics for an infection, it should be ascertained if the infection in question is a bacterial infection or not. If there is confirmed bacterial infection or high suspicion of bacterial infection, then antibiotics are indicated. If antibiotics are indicated, they should be prescribed. Indicated antibiotic for bacterial infections should not be withheld for fear of future C. difficile infection. Antibiotic use for prophylaxis should be discussed on a case by case basis. For future antibiotic exposure, I would recommend to use narrow spectrum antibiotics for the lowest duration of time possible. Broad-spectrum antibiotics such as clindamycin should be avoided. If antibiotics are prescribed, symptoms of diarrhea should be observed for. If there is new onsetwatery diarrhea with 3 or more bowel movements a day for 2 days in a row, stool should be tested for C. difficile infection. If systemic antibiotics are needed, would not recommend with vancomycin or fidaxomicin prophylaxis. If diarrhea symptoms similar to prior C difficile infection episodes return, would recommend testing for C difficile. If another episode happens, would recommend initiating fidaxomicin 200 mg twice a day and then she should contact me. For 2 more episodes we will highly recommend microbiome or bacteria based therapies. One option is something known as Vowst which is a capsule based therapy and an enema based therapy known as Rebyota. I would recommend that if she has not symptoms that are not suggestive of C difficile, stool tests should not be done for C difficile. I would recommend that she liberalize her diet to what she was eating prior to C difficile infection episodes. If she has any symptoms that returned when she is reintroducing 1 of the foods, she should hold on that food item for now. If tolerable, she should try an [id number] fiber supplementation such as Citrucel. We will hold off on using loperamide or Imodium at this time. We would recommend colestipol 1 g twice daily. If in 2 weeks it leads to partial symptom improvement, we would increase that to g twice daily. * Attachments The following attachments cannot be sent through Care Everywhere. * Clostridioides Difficile (C. Diff): Information for You, Your Family and Friends documented in this encounter Consult Notes * Juan Jose Simmons M.B.B.S., M.S. - 08/13/2024 1:10 PM CDT Outpatient Consultation SUBJECTIVE Meg Doty [phone] REFERRING PHYSICIAN: No ref. 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 Doty is a very pleasant 74 y.o. female who is being seen in clinic today. 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 A diagnosis of Diarrhea was also pertinent to this visit. Mrs. Meg Doty is a 74 year old female who presents with persistent diarrhea and gastrointestinal symptoms. Four weeks ago, she was diagnosed with a Clostridioides difficile infection following a course of Augmentin for a sinus infection. Symptoms began with a fever of 102??F and diarrhea on July 02, leading to an ER visit where no specific diagnosis was made. The C. diff diagnosis was confirmed on July 17. Initial treatment with vancomycin for eight days provided minimal improvement, followed by a ten-day course of Dificid, which reduced the frequency of diarrhea but did not completely resolve it.She completed the treatment a week ago and notes a reduction in the bad odor of her stools, although they remain yellowish. She has a longstanding history of diarrhea, which worsened after undergoing Martinez fundoplication surgery two years ago for a large paraesophageal hernia. She was also diagnosed with Dedrick's lesions and anemia at that time. Post- surgery, her diarrhea intensified, and she has been managing symptoms with Imodium. Despite experiencing symptoms for decades, she has not received a formal diagnosis of irritable bowel syndrome (IBS). She has lost 13 pounds and adheres to a bland diet consisting of bananas, potatoes, bread, applesauce, rice, and noodles. She feels hungry at times, which she considers a positive sign. Prior to the C. diff infection, she avoided spicy and fatty foods due to a history of gallbladder removal in 1992, which also exacerbated her diarrhea. Her bowel movements have varied, with one stool yesterday and two today, compared to six on Monday.The stools are described as type 6 and 7 on the [place] Stool Chart. Before the onset of C. diff, she rarely had formed stools. She has a history of trying cholestyramine post-gallbladder surgery, which she did not continue due to side effects. She is currently taking atorvastatin for cholesterol management, having switched from simvastatin. She has stopped taking Eland and Prilosec. She has been practicing scrupulous hand hygiene and bleach treatments on surfaces to prevent the spread of C. diff. REVIEW OF SYSTEMS All other systems reviewed and negative unless mentioned in the history of present illness, patientprovided information or problem list. HISTORY REVIEW: The following portions of the patient's history were reviewed and updated as appropriate: allergies, current medications, family history, medical history, social history, surgical history and problemlist. OBJECTIVE VITAL SIGNS BP (!) 173/71 (BP Location: Right arm, Patient Position: Sitting, Cuff Size: Regular) Pulse 61 Ht 162.3 cm Wt 54.2 kg BMI 20.56 kg/m?? PHYSICAL EXAMINATION General: Sitting comfortably in no acute distress. Psychiatric: Awake, alert and oriented. Skin: No obvious rashes. Eyes: Sub conjunctiva pink. 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 Doty is a very pleasant 74 y.o. female who presents for evaluation and management of 1 episode of C difficile infection and longstanding diarrhea. Mrs. Doty was diagnosed with C. diff infection four weeks ago, likely due to Augmentin for sinus infection. Initial vancomycin treatment for eight days showed minimal improvement. Switched to fidaxomicin for ten days, reducing symptoms but not completely resolving them. Currently one week post-treatment with reduced diarrhea frequency and absence of malodor. Risk of recurrence within eight weeks post-treatment is 20%. Irritable bowel syndrome with diarrhea Longstanding diarrhea, worsened post-Martinez fundoplication. Symptoms include frequent diarrhea, sometimes green, without significant pain. Previous fiber supplements caused bloating and gas. Potential bile acid diarrhea considered due to cholecystectomy history. Testing for bile acid diarrhea not recommended currently due to recent antibiotic use; consider testing in eight weeks if needed. Bile acid diarrhea may be treated with bile acid binding agents such as colestipol or colesevelam. I discussed the epidemiology and risk factors for C. difficile infection with her, which include antibiotic exposure, hospitalization, comorbidities, and age over 65 years. C. difficile infection waspreviously considered to be hospital- acquired infection, but studies over the last few years have shown that up to 40% of all C. difficile infection can indeed be community-acquired, which happens inpatients who are younger and have fewer comorbidities. We discussed the pathophysiology of C. difficile infection, including the fact that there is disruption of the distal gut micro cindy upon antibiotic exposure. In addition, we also discussed that therisk of recurrence after C. difficile infection can be up to 20% after a first infection, 40% aftera second infection, and 60% or higher after a third infection. We also discussed that there is probably about a 20% risk of post-infectious irritable bowel syndrome after resolution of C. difficile infection. RECOMMENDATIONS: In general, before considering antibiotics for an infection, it should be ascertained if the infection in question is a bacterial infection or not. If there is confirmed bacterial infection or high suspicion of bacterial infection, then antibiotics are indicated. If antibiotics are indicated, they should be prescribed. Indicated antibiotic for bacterial infections should not be withheld for fear of future C. difficile infection. Antibiotic use for prophylaxis should be discussed on a case by case basis. For future antibiotic exposure, I would recommend to use narrow spectrum antibiotics for the lowest duration of time possible. Broad-spectrum antibiotics such as clindamycin should be avoided. If antibiotics are prescribed, symptoms of diarrhea should be observed for. If there is new onsetwatery diarrhea with 3 or more bowel movements a day for 2 days in a row, stool should be tested for C. difficile infection. If systemic antibiotics are needed, would not recommend with vancomycin or fidaxomicin prophylaxis. If diarrhea symptoms similar to prior C difficile infection episodes return, would recommend testing for C difficile. If another episode happens, would recommend initiating fidaxomicin 200 mg twice a day and then she should contact me. For 2 more episodes we will highly recommend microbiome or bacteria based therapies. One option is something known as Vowst which is a capsule based therapy and an enema based therapy known as Rebyota. I would recommend that if she has not symptoms that are not suggestive of C difficile, stool tests should not be done for C difficile. I would recommend that she liberalize her diet to what she was eating prior to C difficile infection episodes. If she has any symptoms that returned when she is reintroducing 1 of the foods, she should hold on that food item for now. If tolerable, she should try an rdib-aud-okpodyb fiber supplementation such as Citrucel. We will hold off on using loperamide or Imodium at this time. We would recommend colestipol 1 g twice daily. If in 2 weeks it leads to partial symptom improvement, we would increase that to g twice daily. Avoid probiotics in capsule form; kefir is acceptable. FOLLOW UP RECOMMENDATIONS: I would recommend that she follow up with me on the patient portal by sending me a symptom update in about 2 weeks' time frame. MEDICATION REFILLS: I have sent a prescription for colestipol to her preferred pharmacy. PATIENT EDUCATION: Ready to learn, no apparent learning barriers were identified; learning preferences include listening. Explained diagnosis and treatment plan; patient expressed understanding of the content. The patient verbally consented to an audio recording of their visit to assist with the completion of documentation. Leonel Batista., M.S. 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
--- OUTSIDE RECORDS SUMMARY | 2024-08-23 08:50 | XMS_ITS | Clinical Summary ---
Author Organization [facility] Address [address] [place] [address] Care Team Providers Care Form Setter/Driver Name Role Phone Hillary Webb MD Primary Care Provider Allergies No known active allergies Social History Tobacco Use Types Packs/Day Years Used Date Smoking Tobacco: Never Assessed Adolescent Education Answer Date Record ed Getting School Help Needed Not on file 01/19 Comments Unknown Sex and Gender Information Value Date Recorded Sex Assigned at Female 02/06/2023 8:12 PM BASIC SCIENCES DEAN Legal Sex Female 8:12 PM BASIC SCIENCES DEAN Gender Identity Female 02/06/2023 8:12 PM BASIC SCIENCES DEAN Sexual Orientation Bisexual 02/06/2023 8: 12 PM BASIC SCIENCES DEAN Plan of Treatment Health Maintenance Due Date Last Done Comments ADVANCE CARE PLANNING 1950 ANNUAL REVIEW OF HM ORDERS 1950 DEXA 1950 DIABETES SCREENING 1950 HEPATITIS C SCREENING 01/01/1966 LIPID 1988 FALL RISK ASSESSMENT 01/01/2013 RSV VACCINE (1 - 1-dose 75+ series) 01/01/2023 COVID-19 VACCINE ( season) 2023 11/22/2022, 07/25/2022, 12/06/2021, Additional history exists MEDICARE ANNUAL WELLNESS VISIT 11/08/2023 11/07/2022, 10/28/2020 PHQ-2 (once per calendar year) 2024 INFLUENZA VACCINE (#1) 2024 , 12/06/2021, 11/26/2020, Additional history exists DTAP/TDAP/TD VACCINE (3 - Td or Tdap) 01/30/2030 01/31/2020, 03/06/2009, 03/23/1999 PNEUMOCOCCAL VACCINE 50+ YEARS Completed 03/20/2014, 03/18/2013 ZOSTER VACCINE Completed 03/08/2018, 11/16/2017 MAMMO SCREENING Discontinued 04/22/2022, 03/24, 03/10/2020 HPV VACCINE Aged Out No longer eligi ble based on patient's age to complete this topic MENINGITIS VACCINE Aged Out No longer eligible based on patient's age to complete this topic Insurance MEDICARE [facility] MEDICARE [facility] BLUE Care Teams Form Setter/Driver Relationship Specialty Start Date End Date Hillary Webb MD [address] [place] [address] PCP - General Family Medicine 02/09/23
--- OUTSIDE RECORDS SUMMARY | 2024-08-23 08:50 | XMS_ITS | Clinical Summary ---
Author Organization [facility] Address [address] [place] [address] Care Team Providers Care Foiling Machine Adjuster Name Role Phone Unavailable Primary Care Provider Unavailabl e Source Comments Patient records contain information from all sites at [facility]. For routine questions regarding patient records, call [phone] during business hours, M-F 8:00 AM - 5:00 PM Central Time. Record requests for emergency care only can be directed to [phone] at any time.[facility] Allergies No known active allergies Medications * This document contains information received from the source organization and may not represent a complete record from that organization. acetaminophen (TylenoL) 500 mg tablet Take 1,000 mg by mouth every 6 (six) hours as needed. 05/14/19 23 Active alendronate (Fosamax) 70 mg tablet Take 70 mg by mouth once a week. 11/23/19 24 Active allopurinoL (Zyloprim) 100 mg tablet Take 100 mg by mouth daily. 11/23/19 24 Active atenoloL (Tenormin) 25 mg tablet Take 25 mg by mouth daily. 11/23/19 24 Active atorvastatin (Lipitor) 20 mg tablet Take 20 mg by mouth at bedtime. 11/23/19 24 Active calcium carbonate 1,500 mg (600 mg calcium) tablet Take 600 mg by mouth 2 (two) times a day with meals. 11/05/19 22 Active cholecalcifero l (Vitamin D3) 125 mcg (5,000 Unit) tablet Take 125 mcg by mouth daily. 11/24/19 24 Active clobetasoL (Temovate) 0.05 % ointment Apply 1 Application topically once a week. 11/23/19 24 Active fluticasone propionate (Flonase) 50 mcg/actuation nasal spray Administer 1 spray into nostril(s) at bedtime as needed. Active loperamide (Imodium A-D) 2 mg capsule Take 2 mg by mouth daily as needed. Active colestipoL (Colestid) 1 gram tablet Take 1 tablet (1 g total) by mouth 2 (two) times a day. May increase to 2 tablets twice daily in 2 weeks for partial improvement 180 tablet 1 08/14/19 25 Active HYDROcodone-ac etaminophen ([place]) 5-325 mg per tablet 04/23/2019 Hydrocodone-Artemio taminophen Oral 5 mg-325 mg Oral 04/23/2019 inactive 04/23/19 20 025 Discontinued SIMVASTATIN ORAL Simvastatin Oral active 025 Discontinued omeprazole magnesium (Acid [employer], omeprazole,) 20 mg capsule,delaye d release(DR/EC) Omeprazole Oral Delayed Release Capsule active 025 Discontinued Encounters * This document contains information received from the source organization and may not represent a complete record from that organization. Date Type Department Care Team Description 08/13/2024 1:10 PM CDT Comprehensive Visit Division of Gastroenterology in [address] [phone] Juan Jose Simmons M.B.B.S., M.S. 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 (Primary Dx); Diarrhea 08/13/2024 8:45 AM CDT Clinical Communication Virtual Review in [address] [phone] Previsit Preparation (ELVIS DONE JM ) from Last 3 Months Social History Tobacco Use Types Packs/Day Years Used Date Smoking Tobacco: Former Cigarettes 0.3 12.8 0 03/27/1966 - 01/01/1979 Smokeless Tobacco: Never Tobacco Cessation:Counseling Given: Not Answered Comments:Stopped smoking 45 years ago Alcohol Use Standard Drinks/Week Comments Yes 1 (1 standard drink = 0.6 oz pur e alcohol) [facility] Utilities Answer Date Recorded In the past 12 months has [employer], gas, oil, or water [employer] threatened to shut off services in your [...] your living situation today? 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 Gender Identity Female 08/10/2024 10:39 AM CDT Sexual Orientation Straight 08/10/2024 10 :39 AM CDT Last Filed Vital Signs Vital Sign Reading [...] Mass Index 20.56 08/13/2024 12:55 PM CDT Plan of Treatment Health Maintenance Due Date Last Done Comments Hepatitis C Screening 1950 Depression Screening (Annual PHQ-2) 02/21/2024 Fall Risk Screen (Annual) 02/21/2024 COVID-19 Vaccine ( season) 2024 12/05/2023, 08/17/2023, 11/22/2022, Additional history exists Office Visit for Blood Pressure Check / Re-check 11/13/2024 08/13/2024 Influenza Vaccine (#1) 2024 4, 11/22/2022, 12/06/2021, Additional history exists DTaP,Tdap,and Td Vaccines (3 - Td or Tdap) 01/30/2030 01/31/2020, 03/06/2009, 03/23/1999 Pneumococcal vaccine (50+ years) Completed 03/20/2014, 03/18/2013 Zoster Vaccines Completed 03/08/2018, 11/16/2017 RSV vaccine - (32-36 weeks) or 60+ years Completed 03/31/2023 IPV Vaccines Aged Out No longer eligi ble based on patient's age to complete this topic Insurance MEDICARE [facility]
--- OUTSIDE RECORDS SUMMARY | 2024-08-23 08:50 | XMS_ITS ---
Author Name Interface, [id number] lity Address [address] [facility] [address] [address] [facility] Address [address] [facility] [address] [place] [address] Allergies and Adverse Reactions Medication/Group Name Reaction [...] Ordered By Specimen Source Lab Address 10/28 [facility] other lab See d Medications Date Name Route Dose Frequency Instructions Start Date End Date Status Simvastatin Oral active Allopurinol Oral active Loperamide Oral a ctive Clobetasol Topical Cream 0.05 % active Fluticasone Nasal [place] 50 mcg/actuation active Atenolol Oral act yvon Omeprazole Oral Delayed Release Capsule active triamcinolone acetonide 40 MG/ML Injectable Suspension [Kenalog] into the lesion 0.4 mg once inject into site as ten - 1 mg doses greater than or equal to 1 cm apart. 021 active 015 Cholecalciferol Oral Oral 1.0 {capsul e} Vitamin D3 015 active Problems Diagnosis Status Date of Diagnosis Resolution Date Hypertrophic scar Active Melanoma in situ Active 03/05/2019 Vital Signs Date Type Value 08/06/2020 Heart Beat 70.00 08/06/2020 Oxygen Saturation 98.00 08/06/2020 Height 65.00 08/06/2020 Pain Scale 0.00 08/06/2020 Intravascular Systolic 108 08/06/2020 Intravascular Diastolic 65
--- OUTSIDE RECORDS SUMMARY | 2024-08-23 08:50 | XMS_ITS ---
Author Name Interface, [id number] lity Address [address] [facility] [address] [address] [facility] Address [address] [facility] [address] [place] [address] Allergies and Adverse Reactions Medication/Group Name Reaction [...] By Specimen Source Lab Address 10/28 [facility] other lab See d Medications Date Name Route Dose Frequency Instructions Start Date End Date Status Simvastatin Oral active Allopurinol Oral active Loperamide Oral a ctive Clobetasol Topical Cream 0.05 % active Fluticasone Nasal [place] 50 mcg/actuation active Atenolol Oral act yvon [...]
--- OUTSIDE RECORDS SUMMARY | 2024-08-23 08:50 | XMS_ITS | CCD ---
Author Name Interface, [id number] lity Address [address] [facility] [address] [address] Organization [facility] Address [address] [facility] [address] [place] [address] Care Team Providers Care Gang Saw Operator Name Role Phone Nikki TAM, Richard Lau lable Allergies and Adverse Reactions Medication/Group Name Reaction Severity Date No known allergies Reason for Visit RC - 3 MOS - 3 MOS Medications Date Name Route Dose Frequency Instructions Start Date End Date Status Simvastatin Oral active Allopurinol Oral active Loperamide Oral a ctive Fluticasone Nasal [place] 50 mcg/actuation active Omeprazole Oral Delayed Release Capsule active Atenolol Oral act yvon Clobetasol Topical Cream 0.05 % active 020 Hydrocodone-Acetam inophen Oral 5 mg-325 mg Oral 04/23/19 20 inactive 015 Cholecalciferol Oral Oral 1.0 {capsul e} Vitamin D3 03/20/19 15 active Problems Diagnosis Status Date of Diagnosis Resolution Date Hypertrophic scar Active Melanoma in situ Active 03/05/2019 Social History Date Name Value 03/18/2019 Sex Female
--- OUTSIDE RECORDS SUMMARY | 2024-08-23 08:50 | XMS_ITS | CCD ---
Author Name Interface, [id number] lity Address [address] [place] [address] Organization [facility] Address [address] [place] [address] Care Team Providers Care Sales Administration Specialist Name Role Phone Nikki TAM, Richard Lau labgagandeep Allergies and Adverse Reactions Medication/Group Name Reaction Severity Date No known allergies Reason for Visit RC - 3 MOS - 3 MOS Medications Date Name Route Dose Frequency Instructions Start Date End Date Status Fluticasone Nasal Keno 50 mcg/actuation active Omeprazole Oral Delayed Release Capsule active Allopurinol Oral active Loperamide Oral a ctive Simvastatin Oral active Atenolol Oral act yvon Clobetasol Topical [...]
[2024-08-23 08:59] VITALS: BP 148/78; PULSE 58; RESP 18; TEMP 36.2; O2SAT 97
--- NOTE | 2024-08-23 09:24 | ED.NAVMDI ---
HPI - Nausea/Vomiting/Diarrhea General Chief complaint: Diarrhea Stated complaint: C-Diff Time Seen by Provider: 08/23/24 08:52 History of Present Illness HPI Narrative: This 74-year-old female comes in with recurrent diarrhea and a history of Clostridium difficile infection. She is seeing a GI specialist at [place] and completed a treatment of Dificid a couple weeks ago. She had been on vancomycin which was not effective to treat this infection. She was instructed to be seen if diarrhea recurs. She began to have diarrhea yesterday and went to urgent care. She comes in today with persistent diarrhea at very suspicious for recurrence of her Clostridium difficile. She does arrive with normal vital signs. Related Data Home Medications ?Medication ?Instructions ?Recorded ?Confirmed alendronate 70 mg tablet 70 mg PO .once weekly 08/02/22 08/23/24 allopurinol 100 mg tablet 100 mg PO DAILY 08/02/22 08/23/24 atenolol 50 mg tablet 25 mg PO DAILY 08/02/22 08/23/24 atorvastatin 20 mg tablet 20 mg PO DAILY 08/02/22 08/23/24 calcium 600 mg (as 1 cap PO BID 08/02/22 08/23/24 carbonate)-vitamin D3 12.5 mcg (500 unit) capsule (Calcium with Vit D3) Previous Rx's ?Medication ?Instructions ?Recorded clobetasol 0.05 % topical ointment 1 applic topical DIRECTED #30 08/02/22 grams fidaxomicin 200 mg tablet (Dificid) 200 mg PO Q12H 10 days #20 tabs 08/23/24 Allergies Allergy/AdvReac Type Severity Reaction Status Date / Time No Known Drug Allergies Allergy Verified 08/23/24 08:57 Review of Systems Status of ROS: Reports: 10 or more systems reviewed and unremarkable except as noted in History and below Narrative: Constitutional: No fevers, no weight gain or loss. Eyes: No discharge. No vision changes. HENT: No congestion, no sore throat, no ear pain. Cardiovascular: No chest pain, no palpitations. Respiratory: No shortness of breath, no wheezes, no cough. Gastrointestinal: Diarrhea with history of Clostridium difficile. Genitourinary: No dysuria, no hematuria. Musculoskeletal: Normal range of motion. Skin: No rashes, no pruritis. Neurological: No dizziness, weakness, sensory change, speech change. Endo/Heme/Allergies: No bruising or bleeding. No polydipsia. Pysch: no suicidality, no anxiety, no insomnia. All other systems reviewed and are negative. PFSH PFS Medical History History of gout ?Z87.39 - Personal history of other diseases of the musculoskeletal system and connective tissue (ICD-10) History of skin cancer ?Z85.828 - Personal history of other malignant neoplasm of skin (ICD-10) History of colon polyps ?Z86.010 - Personal history of colonic polyps (ICD-10) Surgical History Hx of cholecystectomy ?Z90.49 - Acquired absence of other specified parts of digestive tract (ICD-10) History of Martinez fundoplication ?Z98.890 - Other specified postprocedural states (ICD-10) History of esophageal dilatation ?Z98.890 - Other specified postprocedural states (ICD-10) History of colonoscopy ?Z98.890 - Other specified postprocedural states (ICD-10) History of tonsillectomy ?Z90.89 - Acquired absence of other organs (ICD-10) History of lumbar laminectomy ?Z98.890 - Other specified postprocedural states (ICD-10) Family History Mother High blood pressure Osteoporosis Father Prostate cancer Social History Smoking Status: Former smoker How often do you have a drink containing alcohol: never AUDIT-C Alcohol total score: 0 Non-prescribed substance use: denies use Exam Narrative: Exam Narrative: Constitutional: Well-developed, well-nourished, no acute distress. HEENT: Normocephalic, atraumatic. Neck: Normal range of motion. Nontender. Supple. Heart: Intact distal pulses. Lungs: No chest discomfort. No wheezes, rhonchi, or rales. Abdomen: Nontender. Back: Normal range of motion. Extremities: Normal range of motion. No injury. Skin: Intact. No rash. Warm. No erythema or pallor. Neurologic: No altered sensation. No weakness. Alert and oriented. Psychiatric: No suicidality. No anxiety or depression. No insomnia. Nursing notes and vitals signs are reviewed. Const: Vital Signs, click to edit/add: Vital Signs - 24 hr 08/23/24 08:59 Temperature 97.2 F L Pulse Rate [Pulse Oximeter] 58 L Respiratory Rate 18 Blood Pressure [Ri ght Upper Arm] 148/78 H Pulse Oximetry 97 Oxygen Delivery Me thod Room Air Course Vital Signs Vital signs: Initial Vital Signs Temperature 97.2 F L 08/23/24 08:59 Temperature Source Temporal Artery Scan 08/23/24 08:59 Pulse Rate 58 L 08/23/24 08:59 Pulse Rhythm Regular 08/23/24 08:59 Respiratory Rate 18 08/23/24 08:59 Blood Pressure 148/78 H 08/23/24 08:59 Blood Pressure Mean 101 08/23/24 08:59 Blood Pressure Position Sitting 08/23/24 08:59 Pulse Oximetry 97 08/23/24 08:59 Oxygen Delivery Method Room Air 08/23/24 08:59 Vital Signs Temperature 97.2 F L 08/23/24 08:59 Pulse Rate 58 L 08/23/24 08:59 Respiratory Rate 18 08/23/24 08:59 Blood Pressure 148/78 H 08/23/24 08:59 Pulse Oximetry 97 08/23/24 08:59 Oxygen Delivery Method Room Air 08/23/24 08:59 Temperature 97.2 F L 08/23/24 08:59 Pulse Rate 58 L 08/23/24 08:59 Respiratory Rate 18 08/23/24 08:59 Blood Pressure 148/78 H 08/23/24 08:59 Pulse Oximetry 97 08/23/24 08:59 Oxygen Delivery Method Room Air 08/23/24 08:59 MDM - Nausea/Vomiting/Diarrhea MDM Narrative Medical decision making narrative: This patient comes in with recurrent diarrhea and a recent history of Clostridium difficile. 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 She had been on vancomycin which was ineffective and then was treated with Dificid which was affective however her symptoms have recurred now after 2 weeks of completing this medicine. Her symptoms are very suspicious of recurrence of her Clostridium difficile. She was given a kit for a stool sample yesterday at their urgent care visit but has not provided this test yet. It seems important to start medication based on her symptoms. Today is a holiday and many pharmacies are not open. I did provide written scripts for both vancomycin and Dificid. She can start the vancomycin if unable to obtain Dificid which is very expensive most pharmacies do not have this medicine. Discharge Plan Discharge Clinical Impression: Clostridium difficile infection Patient Disposition: Home, Self-Care Condition: Stable Additional Instructions: Take medication as prescribed. Follow-up with nuclear powerplant supervisor for ongoing management. Return if worsening. Prescriptions: New Dificid 200 mg tablet 200 mg PO Q12H 10 Days Qty: 20 0RF No Action atenolol 50 mg tablet 25 mg PO DAILY calcium carbonate-vitamin D3 [Calcium 600 with Vitamin D3] 600 mg-12.5 mcg (500 unit) capsule 1 cap PO BID allopurinol 100 mg tablet 100 mg PO DAILY alendronate 70 mg tablet 70 mg PO .once weekly atorvastatin 20 mg tablet 20 mg PO DAILY clobetasol 0.05 % ointment 1 applic topical DIRECTED Qty: 30 1RF Follow Up/Referrals: Provider,Not a Local [Primary Care Provider, Family Practice] Stand Alone Forms: [facility] Info Instructions
--- OUTSIDE RECORDS SUMMARY | 2024-08-23 09:45 | XMS_ITS | Clinical Summary ---
Author Organization [facility] Address [address] [place] [address] Care Team Providers Care Shirt Sewer Name Role Phone Hillary Webb MD Primary Care Provider [phone] Allergies No known active allergies Medications calcium carbonate (CALTRATE) 600 mg calcium (1,500 mg) tabletIndications: Osteopenia, unspecified location Take 1 Tablet (600 mg) by mouth two times daily with meals. 180 Tablet 3 11/05/19 22 Active fluticasone (50 mcg per actuation) nasal solution (FLONASE) Inhale 1 Royal into affected nostril(s) once daily if needed [...] 05/14/19 23 Active alendronate (FOSAMAX) 70 mg tabletIndications: Osteopenia, unspecified location TAKE 1 TABLET ONCE WEEKLY IN THE MORNING . TAKE ON EMPTY STOMACH WITH FULL GLASS OF WATER. DO NOT LIE DOWN OR EAT FOR AT LEAST 30 MINUTES AFTER ADMINISTRATION. 13 Tablet 3 11/23/19 24 Active allopurinoL (ZYLOPRIM) 100 mg tabletIndications: Gout, unspecified cause, unspecified chronicity, unspecified site,Hyperuricemia Take 1 Tablet (100 mg) by mouth once daily. 90 Tablet 3 11/23/19 24 Active atorvastatin (LIPITOR) 20 mg tabletIndications: Hyperlipidemia, unspecified hyperlipidemia type Take 1 Tablet (20 mg) by mouth at bedtime. 100 Tablet 3 11/23/19 24 Active atenoloL (TENORMIN) 25 mg tabletIndications: Essential hypertension Take 1 Tablet (25 mg) by mouth once daily. 100 Tablet 3 11/23/19 24 Active clobetasol (TEMOVATE) 0.05 % ointmentIndication s:Lichen sclerosus Apply thin later to genital area involved at bedtime once weekly 45 g 1 11/23/19 24 Active cholecalciferol, Vitamin D3, (Vitamin D-3) 5,000 unit tab tabletIndications: Hypovitaminosis D Take 1 Tablet (5,000 units) by mouth once daily. 90 Tablet 3 11/24/19 24 Active hydrOXYzine HCL 25 mg tabletIndications: Anxiety disorder due to medical condition Take 1 Tablet (25 mg) by mouth every 6 hours if needed for Itching. 25 Tablet 07/30/19 25 Active vancomycin 125 mg capsuleIndications :C. difficile diarrhea Take 1 Capsule (125 mg) by mouth four times daily for 10 days. 40 Capsule 07/19/19 25 025 Additional Information Patient not taking.Reported on 07/29/2024 fidaxomicin 200 mg tabletIndications: Clostridioides difficile infection Take 1 Tablet (200 mg) by mouth two times daily for 10 days. 20 Tablet 5 3:02 PM CDT 07/26/19 25 025 Active Problems Problem Noted Date Diagnosed Date [...] - No specimens collected. Colonoscopy 2011 in [place] - tubular adenoma x2 Hiatal hernia Overview (03/16/2022): EGD 2006 in [place] - hiatal hernia EGD 08/28/2017 Done after [...] Encounters Date Type Department Care Team Description 08/08/2024 1:15 PM CDT Orders Only [facility] [address] [place] [id number] Lab, [place] [facility] 08/08/2024 Travel 08/02/2024 1:30 PM CDT Telemedicine [facility] [address] [place] [id number] Hillary Webb MD Follow Up (Patient states symptoms are getting better. She states diahrea is less hasn't gone away, but has improved. Cramping has gotten better especially after she eats.) 08/02/2024 Travel 07/30/2024 E-Consult [facility] [address] [address] [place] [address] Deborah Melara MD 07/29/2024 2:45 PM CDT Office Visit [facility] [address] [place] [id number] Hillary Webb MD Follow Up (patient states her diarrhea episodes have gotten fewer pain has gotten fewer but not gone away. /Patient states that she gets so worried that she can't sleep she is also concerned of weight loss.) 07/29/2024 Telephone [facility] [address] [place] [id number] Hillary Webb MD Appointment 07/29/2024 Travel 07/25/2024 10:00 AM CDT Office Visit [facility] [address] [place] [address] Hillary Webb MD Follow Up (Cdiff follow up/Patient has been on antibiotics since mondayjuly 19 patient states she still has abdominal cramping and pain on and off. Patient has diahrea almost every time after she eats and it is worse in the morning starting around 5 am. ) 07/25/2024 Travel 07/24/2024 Telephone [facility] [address] [place] [address] Hillary Webb MD Appointment 07/18/2024 Telephone [facility] [address] [place] [address] Richard Abebe MD Results 07/17/2024 11:45 AM CDT Orders Only [facility] [address] [place] [address] Lab, [place] [facility] 07/17/2024 9:10 AM CDT Office Visit [facility] [address] [place] [address] Hillary Webb MD Pre-Op Exam (Rt eye Cataract 07/24/24 ); Diarrhea (2 weeks and weight loss ) 07/17/2024 Orders Only [facility] Scanner 1 scan: (1-Ord) [facility], REPAIR FOLLOWING MOHS SURGERY, RT LATERAL FOREHEAD, 07/17/2024 07/17/2024 Travel 07/16/2024 Orders Only [facility] Scanner 1 scan: (1-Ord) [facility], MOHS PROCEDURE, 07/16/2024 07/11/2024 Telephone [facility] [address] [place] [id number] Hillary Webb MD RECORDS 07/02/2024 Orders Only [facility] Scanner 1 scan: (1-Ord) [place], CT SINUS WO CON, 07/02/2024 07/02/2024 Orders Only [facility] Scanner 1 scan: (1-Ord) [place], MULTIPLE LABS, 07/02/2024 06/20/2024 Telephone [facility] [address] [place] [address] Hillary Webb MD Questions (Where was her prescription sent) 06/05/2024 12:40 PM CDT Office Visit [facility] [address] [place] [id number] Hillary Webb MD Preoperative Exam (CATARACT (BOTH EYES BUT DIFFERENT DAYS FOR SURGERY) LEFT EYE 06/26/24, RIGHT EYE 07/03/24, 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 Gender Identity Not on file Sexual Orientation Not on file Obstetrics History Para Term AB IAB SAB Ectopic Multiple Livin g Live Births 2 2 2 Date Outcome GA Total Labor Labor/2nd/3rd Weight Sex Type Anes PTL Yuko A1 A5 Name Clin Para Para Last Filed Vital Signs Vital Sign Reading Time Taken Comments Blood Pressure 115/74 07/29/2024 2:50 PM CDT Pulse 57 07/29/2024 2:50 PM CDT Temperature 36.7 C (98.1 F) 07/29/2024 2:50 PM CDT Respiratory Rate 12 09/13/2022 2:45 PM CDT Oxygen Saturation 100% 07/29/2024 2:50 PM CDT Inhaled Oxygen Concentration - - Weight 55.2 kg (121 lb 12.8 oz) 07/29/2024 2:50 PM CDT Height 164.5 cm (5' 4.76) 06/05/2024 1 2:45 PM CDT Body Mass Index 20.42 06/05/2024 12:45 PM CDT Plan of Treatment Upcoming Encounters Date Type Department Care Team (Late st Contact Info) Description 09/19/2024 9:10 AM CDT Office Visit [facility] [address] [place] [address] Hillary Webb MD [address] [place] [address] Health Maintenance Due Date Last Done Comments COVID-19 vaccine series ( season) 2024 12/05/2023, 08/17/2023, 11/22/2022, Additional history exists Influenza Vaccine (#1) 2024 9, 12/18/2017, 12/28/2016, Additional history exists Depression screening for age 12+ 11/22/2024 11/23/2023, 11/07/2022, 11/04/2021, Additional history exists Medicare Wellness for age 65+ 11/23/2024 11/23/2023, 11/07/2022, 11/04/2021 (Verified in Care Everywhere or Patient Record), Additional history exists BMI (ht and wt on same day) for age 18+ 06/05/2025 06/05/2024, 11/23/2023, 11/07/2022, Additional history exists Tetanus booster 01/30/2030 01/31/2020, 02/20, 03/23/1999 Pneumococcal series for age 50+ Completed 03/20/2014, 03/18/2013 Zoster (shingles) series for age 50+ Completed 03/08/2018, 11/16/2017 Hepatitis C screening for age 18-79 Completed 10/28/2020 DEXA/DXA scan for age 65+ Completed 2023, 11/03/2020, 03/20/2014, Additional history exists RSV vaccine for adults or Completed 03/31/2023 Hepatitis B series for 19+ Aged Out N o longer eligible based on patient's age to complete this topic Procedures Procedure Name Priority Date/Time Associated Diagnosis Comments COMP METABOLIC PANEL Routine 07/25/2024 10:48 AM CDT Clostridium difficile colitis CBC WITH AUTO DIFFERENTIAL Routine 07/25/2024 10:48 AM CDT Clostridium difficile colitis CLOSTRIDIOIDES DIFFICILE TOXIN PCR Routine 07/17/2024 12:36 PM CDT Acute diarrhea CRYPTOSPORIDIUM GIARDIA RAPID ANTIGEN Routine 07/17/2024 12:36 PM CDT Acute diarrhea STOOL PATHOGEN MULTIPLEX PCR PANEL Routine 07/17/2024 12:35 PM CDT Acute diarrhea Left lower quadrant abdominal tenderness without rebound tenderness CBC WITH AUTO DIFFERENTIAL Routine 07/17/2024 10:06 AM CDT Acute diarrhea COMP METABOLIC PANEL Routine 07/17/2024 10:06 AM CDT Acute diarrhea C-REACTIVE PROTEIN Routine 07/17/2024 10 :06 AM CDT Acute diarrhea SCAN-OPERATIVE/PROCEDUR E REPORT 07/17/2024 12:00 AM CDT SCAN-OPERATIVE/PROCEDUR E REPORT 07/16/2024 12:00 AM CDT SCAN-LABORATORY REPORT 12:00 AM CDT SCAN-CT INTERPRETATION 12:00 AM CDT XR DXA BONE DENSITY 1 SITE AXIAL AND 1 SITE PERIPHERAL Routine 03/27/2023 1:48 PM ORTHOPEDIC DESIGNER Osteopenia, unspecified location Postmenopausal ANTI HCV Routine 10/28/2020 9:10 AM CDT Need for hepatitis C screening test from Last 3 Months or Most Recently Relevant to Health Maintenance Results * CBC AND DIFFERENTIAL (07/25/2024 10:48 AM CDT) Only the most recent of2 resultswithin the time period is included. WHITE BLOOD CELL COUNT 7.4 3.8 - 10.8 Thousand/u L [facility] RED BLOOD CELL COUNT 4.13 3.80 - 5.10 Million/uL [facility] HEMOGLOBIN 12.2 11.7 - 15.5 g/dL [facility] HEMATOCRIT 37.8 35.0 - 45.0 % [facility] MCV 91.5 80.0 - 100.0 fL [facility] MCH 29.5 27.0 - 33.0 pg [facility] MCHC 32.3 32.0 - 36.0 g/dL [facility] Comment: For adults, a slight decrease in the calculated MCHC value (in the range of 30 to 32 g/dL) is most likely not clinically significant; however, it should be interpreted with caution in correlation with other red cell parameters and the patient's clinical condition. RDW 13.5 11.0 - 15.0 % [facility] PLATELET COUNT 368 140 - 400 Thousand/u L [facility] MPV 10.4 7.5 - 12.5 fL [facility] ABSOLUTE NEUTROPHILS 5,491 1,500 - 7,800 cells/uL [facility] ABSOLUTE LYMPHOCYTES 1,332 850 - 3,900 cells/uL [facility] ABSOLUTE MONOCYTES 496 200 - 950 cells/uL [facility] ABSOLUTE EOSINOPHILS 30 15 - 500 cells/uL [facility] ABSOLUTE BASOPHILS 52 0 - 200 cells/uL [facility] NEUTROPHILS 74.2 % [facility] LYMPHOCYTES 18.0 % [facility] MONOCYTES 6.7 % [facility] EOSINOPHILS 0.4 % [facility] BASOPHILS 0.7 % [facility] Blood BLOOD SPECIMEN / Unknown 07/25/2024 10:48 AM CDT 07/25/2024 10:49 AM CDT us Hillary Webb MD HEMATOLOGY Final Resul t Actions [facility] [address] [place] [address], [place] [phone] [facility] [address] [place] [address] * (ABNORMAL) COMP METABOLIC PANEL (07/25/2024 10:48 AM CDT) Only the most recent of2 resultswithin the time period is included. [facility] Signature GLUCOSE 120(H) 65 - 99 mg/dL [facility] Comment: Fasting reference interval For someone without known diabetes, a glucose value between 100 and 125 mg/dL is consistent with prediabetes and should be confirmed with a follow-up test. UREA NITROGEN (BUN) 9 7 - 25 mg/dL [facility] CREATININE 0.86 0.60 - 1.00 mg/dL [facility] EGFR 70 > OR = 60 mL/min/1. 73m2 [facility] BUN/CREATININE RATIO SEE NOTE: 6 - 22 (calc) [facility] Comment: Not Reported: BUN and Creatinine are within reference range. SODIUM 143 135 - 146 mmol/L [facility] POTASSIUM 4.0 3.5 - 5.3 mmol/L [facility] CHLORIDE 110 98 - 110 mmol/L [facility] CARBON DIOXIDE 25 20 - 32 mmol/L [facility] CALCIUM 8.9 8.6 - 10.4 mg/dL [facility] PROTEIN, TOTAL 5.5(L) 6.1 - 8.1 g/dL [facility] ALBUMIN 3.5(L) 3.6 - 5.1 g/dL [facility] GLOBULIN 2.0 1.9 - 3.7 g/dL (calc) [facility] ALBUMIN/GLOBULIN RATIO 1.8 1.0 - 2.5 (calc) [facility] BILIRUBIN, TOTAL 0.6 0.2 - 1.2 mg/dL [facility] ALKALINE PHOSPHATASE 45 37 - 153 U/L [facility] AST 21 10 - 35 U/L [facility] ALT 14 6 - 29 U/L [facility] Blood BLOOD SPECIMEN / Unknown 07/25/2024 10:48 AM CDT 07/25/2024 10:49 AM CDT Hillary Webb MD CHEMISTRY Final Resul t Performing Organization Address City/[facility] Co de Phone Number Actions [address] [address], [employer] [address] * CRYPTOSPORIDIUM GIARDIA RAPID ANTIGEN (07/17/2024 12:36 PM CDT) [facility] GIARDIA AND CRYPTOSPORIDIUM ANTIGEN PANEL SEE NOTE [facility] Comment: CRYPTOSPORIDIUM ANTIGEN, EIA Micro Number: [id number] Test Status: Final Specimen Source: Stool Specimen Quality: Adequate Cryptosporidium: Not Detected Reference Range: Not Detected NOTE: Due to intermittent shedding, one negative sample does not necessarily rule out the presence of a parasitic infection. GIARDIA AND CRYPTOSPORIDIUM ANTIGEN PANEL SEE NOTE [facility] Comment: GIARDIA AG, EIA, STOOL Micro Number: [id number] Test Status: Final Specimen Source: Stool Specimen Quality: Adequate Giardia Result 1: Not Detected Reference Range: Not Detected NOTE: Due to intermittent shedding, one negative sample does not necessarily rule out the presence of a parasitic infection. Stool STOOL SPECIMEN / Unknown 07/17/2024 12:36 PM CDT 07/17/2024 12:37 PM CDT Hillary Webb MD MICROBIOLOGY Final Resul t Performing Organization Address City/[facility]/ZIP Co de Phone Number Actions [address] [address], [facility] [address] [place] [address] * (ABNORMAL) CLOSTRIDIOIDES DIFFICILE TOXIN PCR (07/17/2024 12:36 PM CDT) Pathologist [facility] CLOSTRIDIUM DIFFICILE TOXIN/GDH W/REFL TO PCR SEE NOTE(A) [facility] Comment: CLOSTRIDIUM DIFFICILE TOXIN/GDH W/REFL TO PCR Micro Number: [id number] Test Status: Final Specimen Source: Stool Specimen Quality: Adequate GDH Antigen: Detected Toxin A and B: Detected COMMENT: Toxigenic C. difficile detected For additional information, please refer to http://education.Mozaico/faq/VHF397 (This link is being provided for informational/educational purposes only.) Stool STOOL SPECIMEN / Unknown 07/17/2024 12:36 PM CDT 07/17/2024 12:37 PM CDT us Hillary Webb MD MICROBIOLOGY Final Resul t Actions [facility] [address] [place] [address], [facility] [address] [place] [address] * STOOL PATHOGEN MULTIPLEX PCR PANEL (07/17/2024 12:35 PM CDT) Pathologist [facility] Campylobacter NOT Detected NOT Detected 07/18/2024 11:51 AM CDT [facility] Salmonella NOT Detected NOT Detected 07/18/2024 11:51 AM CDT [facility] Shigella NOT Detected NOT Detected 07/18/2024 11:51 AM CDT [facility] Vibrio NOT Detected NOT Detected 07/18/2024 11:51 AM CDT [facility] Yersinia Enterocolitica NOT Detected NOT Detected 07/18/2024 11:51 AM CDT [facility] Shiga Toxin 1 NOT Detected NOT Detected 07/18/2024 11:51 AM CDT [facility] Shiga Toxin 2 NOT Detected NOT Detected 07/18/2024 11:51 AM CDT [facility] Norovirus NOT Detected NOT Detected 07/18/2024 11:51 AM CDT [facility] Rotavirus NOT Detected NOT Detected 07/18/2024 11:51 AM CDT [facility] Stool STOOL SPECIMEN / Unknown Non-Blood / Unknown 07/17/2024 12:35 PM CDT 07/17/2024 12:36 PM CDT Narrative [facility] - 07/18/2024 11:51 AM CDT This test is a Culture Independent Diagnostic Test (CIDT) therefore isolates are not available for susceptibility testing. Antibiotic treatment is often contraindicated and may be detrimental in cases of enteric infections, thus routine susceptibility testing is not recommended. Hillary Webb MD MICROBIOLOGY Final Resul t [facility] [address] [place] [address], * C-REACTIVE PROTEIN (07/17/2024 10:06 AM CDT) Pathologist [facility] C-REACTIVE PROTEIN 7.3 <8.0 mg/L [facility] Blood BLOOD SPECIMEN / Unknown 07/17/2024 10:06 AM CDT 07/17/2024 10:07 AM CDT Hillary Webb MD CHEMISTRY Final Resul t Actions [facility] [address] [place] [address], [place] [phone] [facility] [address] [place] [address] * SCAN-OPERATIVE/PROCEDURE REPORT (07/17/2024 12:00 AM CDT) us Scanner OTHER Final Result * SCAN-OPERATIVE/PROCEDURE REPORT (07/16/2024 12:00 AM CDT) us Scanner OTHER Final Result * SCAN-LABORATORY REPORT (07/02/2024 12:00 AM CDT) us Scanner OTHER Final Result * SCAN-CT INTERPRETATION (07/02/2024 12:00 AM CDT) Anatomical Region Laterality Modality Other us Scanner OTHER Final Result * (ABNORMAL) XR DXA BONE DENSITY 1 SITE AXIAL AND 1 SITE PERIPHERAL (03/27/2023 1:48 PM ORTHOPEDIC DESIGNER) Anatomical Region Laterality Modality LUMBAR SPINE Other Impressions 03/28/2023 2:10 PM ORTHOPEDIC DESIGNER Osteoporosis. There has been a significant [...] recheck in [address] years. Zita Butler PA-C [facility] 03/28/2023 Narrative 03/28/2023 2:10 PM ORTHOPEDIC DESIGNER For Patients: Results are automatically released to your [facility]) account once available, in compliance with federal regulations. This means that you may see your results before your provider has had a chance to review them. Please allow 2-3 business days for your provider to comment on the results. XR DXA Bone Mineral Density (BMD) EXAM LOCATION: [address] [address] PATIENT NAME: Meg Doty DATE OF : [...] two scanners are made by the same field appraiser. PROCEDURE: Dual-energy x-ray absorptiometry performed with routine [...] yvon Non-React yvon 10/28/2020 4:52 PM CDT [facility] Comment:Antibodies to HCV no t detected; does not exclude the possibility of exposure to HCV. Blood BLOOD SPECIMEN / Unknown Venipuncture / Unknown 10/28/2020 9:10 AM CDT 10/28/2020 9:10 AM CDT us Gaby Brar MD SEND OUTS Final Result [facility] 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
--- OUTSIDE RECORDS SUMMARY | 2024-08-23 09:45 | XMS_ITS ---
Author Name Interface, [id number] lity Address [address] [facility] [address] [address] [facility] Address [address] [place] [address] Allergies and Adverse Reactions Medication/Group Name Reaction [...] Ordered By Specimen Source Lab Address 10/28 [place] other lab See d Medications Date Name Route Dose Frequency Instructions Start Date End Date Status Simvastatin Oral active Allopurinol Oral active Loperamide Oral a ctive Clobetasol Topical Cream 0.05 % active Fluticasone Nasal [place] 50 mcg/actuation active Atenolol Oral act yvon [...]
--- OUTSIDE RECORDS SUMMARY | 2024-08-23 09:45 | XMS_ITS | CCD ---
Author Name Interface, [id number] lity Address [address] [facility] [address] [place] [address] Organization [facility] Address [address] [facility] [address] [place] [address] Care Team Providers Care Track Welder Name Role Phone Nikki TAM, Richard Lau labgagandeep Allergies and Adverse Reactions Medication/Group Name Reaction Severity Date No known allergies Reason for Visit RC - 3 MOS - 3 MOS Medications Date Name Route Dose Frequency Instructions Start Date End Date Status Fluticasone Nasal [place] 50 mcg/actuation active Omeprazole Oral Delayed Release [...]
--- OUTSIDE RECORDS SUMMARY | 2024-08-23 09:45 | XMS_ITS | CCD ---
Author Name Interface, [id number] lity Address [address] [facility] [address] [address] Organization [facility] Address [address] [facility] [address] [place] [address] Care Team Providers Care Hospital Nursing Assistant Name Role Phone Nikki TAM, Richard Lau lable Allergies and Adverse Reactions Medication/Group Name Reaction Severity Date No known allergies Reason for Visit RC - 3 MOS - 3 MOS Medications Date Name Route Dose Frequency Instructions Start Date End Date Status Simvastatin Oral active Allopurinol Oral active Loperamide Oral a ctive Fluticasone Nasal [place] 50 mcg/actuation active Omeprazole Oral Delayed Release [...]
--- OUTSIDE RECORDS SUMMARY | 2024-08-23 09:45 | XMS_ITS ---
Author Name Interface, [id number] lity Address [address] [facility] [address] [address] [facility] Address [address] [facility] [address] [place] [address] Allergies and Adverse Reactions Medication/Group Name Reaction [...] Ordered By Specimen Source Lab Address 10/28 [facility] other lab See d Medications Date Name Route Dose Frequency Instructions Start Date End Date Status Simvastatin Oral active Allopurinol Oral active Loperamide Oral a ctive Clobetasol Topical Cream 0.05 % active Fluticasone Nasal [place] 50 mcg/actuation active Atenolol Oral act yvon [...]
--- NOTE | 2024-08-24 17:23 | ED.NURSE ---
Per lab, C-diff result positive. Dr. Ochoa notified. Per Dr. Ochoa, Pt being treated with Dificid, no further action required.
== END 2024-08-23 09:45 | disposition home or self-care (01) ==
LOC: ED 09:42
PROVIDERS: Emergency Provider Emergency Medicine Emergency Medical Services
DX: A04.71 Enterocolitis due to Clostridium difficile, recurrent (principal)
CPT/HCPCS: 99283; 99284

== ENCOUNTER 2024-08-24 06:30 | Outpatient (CLI) | payer MEDICARE, BC, SELFPAY | END 2024-08-24 06:31 | disposition home or self-care (01) | LOC: NFLDREF 20:25 | DX: R19.7 Diarrhea, unspecified (principal) | CPT/HCPCS: 87493 ==